=== PATIENT | male | born 1945 | race Caucasian/White ===

== ENCOUNTER → 2024-07-25 | Outpatient (CLI) | payer MEDICARE, BC ==
[2024-07-25 17:16] LABS: Partial Thromboplastin Time 25.7 sec (22.0-30.0); Prothrombin Time 11.3 sec (10.0-12.5)
[2024-07-26 02:13] LABS: Basophils # (A) 0.02 X 10*3/uL (0.00-0.10); Basophils % (A) 0.5 %; Eosinophils # (A) 0.08 X 10*3/uL (0.04-0.35); Eosinophils % (A) 1.9 %; HCT 29.1 % (39.6-50.0); HGB 9.2 g/dL (13.0-17.0); Lymphocytes # (A) 0.77 X 10*3/uL (0.90-5.00); Lymphocytes % (A) 18.2 %; MCH 27.8 pg (27.0-32.0); MCHC 31.6 g/dL (32.0-37.0); MCV 87.9 FL (80.0-97.0); Mean Platelet Volume 11.4 FL (9.5-12.2); Monocytes # (A) 0.38 X 10*3/uL (0.20-1.00); NRBC Per 100 WBC 0 X 10*3/uL (0.00-0.01); Neutrophils # (A) 2.97 X 10*3/uL (1.80-7.70); Neutrophils % (A) 70.2 %; Platelet Count 205 X 10*3/uL (140-440); RBC 3.31 X 10*6/uL (4.40-5.60); RDW 14.4 % (11.5-14.5); WBC 4.23 X 10*3/uL (4.50-10.00)
[2024-07-26 02:40] LABS: BUN/Creat Ratio 21.88 Ratio (12.00-20.00); Blood Urea Nitrogen 17.5 mg/dL (9.0-27.0); Calcium 8.8 mg/dL (8.7-10.3); Carbon Dioxide 25.2 mmol/L (21.6-31.8); Chloride 108 mmol/L (96-109); Glucose 94 mg/dL (70-110); Potassium 3.9 mmol/L (3.5-5.5); Sodium 144 mmol/L (135-145)
[2024-07-26 03:51] LABS: Appearance,Urine Clear (Clear); Bilirubin,Urine Negative (Negative); Blood,Urine Negative (Negative); Color,Urine Yellow (Yellow); Ketones,Urine Negative (Negative); Nitrite,Urine Negative (Negative); PH, Urine 5.5; Specific Gravity,Urine 1.016 (1.001-1.030); Urobilinogen,Urine 0.2 E.U./DL
== END | disposition home or self-care (01) ==
LOC: LABWHC1 15:43
PROVIDERS: ATTEND Orthopaedic Surgery Orthopaedic Surgery of the Spine
DX: Z01.812 Encounter for preprocedural laboratory examination (principal); Z22.322 Carrier or suspected carrier of Methicillin resistant Staphylococcus aureus; S32.029A Unspecified fracture of second lumbar vertebra, initial encounter for closed fracture
CPT/HCPCS: 36415; 80048; 81003; 85025; 85610; 85730; 86850; 86900; 86901; 87070

== ENCOUNTER → 2024-07-27 | Day surgery (SDC) | payer MEDICARE, BC ==
[~2024-07-27] MED LIST: ACETAMINOPHEN TAB 500 MG TAB PO SCH; ALBUTEROL NEBULIZED 2.5 MG/3 ML INHALATION PRN; AMYLASE PO SCH; BENZOCAINE/MENTHOL LOZENG 1 EACH LOZENGE MUCOUS MEM PRN; DEXAMETHASONE SOD PHOSPHATE 4 MG/ML 1 ML VIAL IV ONE; ESCITALOPRAM 20 MG TAB PO SCH; ETOMIDATE 2 MG/ML 10 ML VIAL ONE; HYDROcodone/APAP 5-325MG 1 EACH TAB PO PRN; HYDROmorphone 0.5 MG/0.5 ML SYRINGE IVP PRN; LIDOCAINE 1% INJ 10MG/ML (20 ML MDV) ONE; LIPASE PO SCH; NON FORMULARY DRUG (Fluticasone/Vilanterol [Breo Ellipta 200-25 Mcg Inhaler] 1 EACH Blst.W INHALATION SCH; ONDANSETRON 4 MG/2 ML VIAL IVP PRN; PANTOPRAZOLE 40 MG TABLET PO SCH; PROTEASE PO SCH; SODIUM CHLORIDE 0.9% 1,000 ML IV SCH; SUCCINYLCHOLINE CHLORIDE 200 MG/10 ML VIAL IV ONE; [UNRECOGNIZED DRUG - OTHER] PO SCH; ePHEDrine 50 MG/ML 1 ML VIAL ONE; fentaNYL (PF) 50 MCG/ML 2 ML AMP IV PRN; fentaNYL (PF) 50 MCG/ML 2 ML AMP ONE; traZODone HCL 50 MG TAB PO SCH
--- NOTE | 2024-07-27 06:23 | XR ---
EXAMINATION TYPE: XR chest 2V DATE OF EXAM: 07/27/2024 CLINICAL INDICATION: Male, 78 years old with history of Z01.818, presurgical study. TECHNIQUE: Frontal and lateral views of the chest are obtained. COMPARISON: None FINDINGS: Underlying emphysematous changes are present. Mild right apical scarring. There is no focal air space opacity, pleural effusion, or pneumothorax seen. The cardiac silhouette size is within no rmal limits. Atherosclerotic thoracic aorta. Scoliotic curvature is seen. IMPRESSION: Chronic changes without acute cardiopulmonary process. [facility], , 07/27/2024 6:20 AM
[2024-07-27] MEDS: IV FLUID CONTINUATION 1,000 ML IV ONE (06:56)
[2024-07-27] MEDS: LACTATED RINGERS 1,000 ML IV SCH (07:13)
[2024-07-27] MEDS: ONDANSETRON 4 MG/2 ML VIAL IVP ONE (07:13)
[2024-07-27] MEDS: ceFAZolin 2 GM in DEXTROSE 5% IN WATER 50 ML IVPB PRN (07:30)
[2024-07-27] MEDS: IOPAMIDOL M200 10 ML VIAL MISCELLANE ONE (08:02)
[2024-07-27] MEDS: BUPIVACAINE (PF) 0.5% 30 ML VIAL SQ ONE (08:31)
[2024-07-27 08:49] VITALS: TEMP 97.1
--- NOTE | 2024-07-27 08:57 | FL ---
EXAMINATION TYPE: FL guidance operating room, XR lumbar spine 2 or 3V DATE OF EXAM: 07/27/2024 FLUOROSCOPY L2 kyphoplasty fl time: 41sec DAP: [id number] Dr. West Serial imaging demonstrating anterior wedge deformity of L2 due to superior endplate fracture. There is sequential imaging which shows placement of a needle and injection of methyl methacrylate cement i nto the substance of the L2 vertebral body. Some extrusion of the cement superiorly. 6 images are submitted. [facility], Workstation: [id number], 07/27/2024 8:55 AM
--- NOTE | 2024-07-27 09:08 | P.OP ---
Date of Procedure: 07/27/24 Preoperative Diagnosis: L2 vertebral compression fracture, subacute Failed conservative treatment Traumatic fracture L2 status post fall Postoperative Diagnosis: Same Anesthesia: GETA Pathology: other (L2 vertebral body sent to pathology) Condition: stable Disposition: PACU Description of Procedure: BRIEF OPERATIVE NOTE Preoperative Diagnosis: L2 vertebral compression fracture, subacute Failed conservative treatment Traumatic fracture L2 status post fall Postoperative Diagnosis: Same Procedure: Kyphoplasty of L2 Vertebral body biopsy of L2 Use of biplanar fluoroscopic guidance Surgeon: Dr. West Cutter V Groove: Lorenzo SPENCER who is present throughout the entire the case persistence during positioning, dissection, exposure, visualization, and all crucial elements of the case as well as closure. Anesthesia: General anesthesia Estimated blood loss: Less than 10 mL Specimen: Vertebral body biopsy of L2 sent to pathology in formalin Complications: None apparent Components implanted: Bone cement approximately 4 and half cc Disposition: To recovery room in good stable condition. OPERATIVE INDICATIONS The patient has been having issues in their back ever since sustaining an injury. 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 We had seen him and started conservative treatment for him when he was found to have an L2 compression fracture. He is not having neurologic deficit. The patient has been through conservative treatment. They attempted conservative care with bracing however they're not having any benefit despite brace use. They continue to have significant pain and debility due to their fracture. Patient has a number of other medical issues including history of pancreatic cancer and and Whipple procedure and recent history of GI bleed mL and GI ulcerations. He has been cleared for the potential for surgical intervention for kyphoplasty with biopsy at L2. We discussed various treatment options including surgery, and the patient wishes to proceed with surgery We discussed the risk, patient's alternatives and benefits of surgery including but not limited to, risk of bleeding risk of infection, risk of need for further surgery, risk of decreased, loss of motion, loss of function, cement extravasation, nerve damage, paralysis, heart attack, blindness and . OPERATIVE SUMMARY After discussing all the risks, patient alternatives and benefits at length, the patient elected to proceed with surgical intervention, signed informed consent, and presented for their procedure. The patient was seen and examined in the preoperative holding area and the surgical site was marked. The patient was given antibiotics and brought to the operating room. The patient was sedated and intubated by anesthesia in standard fashion. The patient was positioned on to the operating room table in a prone position on the appropriate well-padded and well molded bilateral chest rolls. We were careful to pad any bony prominences and pressure points. We were careful to maintain the patient's cervical spine and good neutral alignment and position throughout. We used 2 C-arm machines to establish biplanar fluoroscopic guidance in AP and lateral positions. We were able to localize the fractures appropriately. The patient was prepped and draped in a normal standard fashion. An appropriate timeout and keystone protocol performed. We were able to proceed with the surgery. The local wound area was infiltrated with local anesthetic. An incision was made over the lateral aspect of the pedicle over the appropriate levels with a small 2 mm stab incision on the right. Intraoperative fluoroscopy was taken which showed a marker at the appropriate level. With the appropriate level positively confirmed at L2, I was able to position a sharp trocar over the lateral aspect of the pedicle. As able to advance the trocar into the pedicle and into the posterior aspect of vertebral body being careful to avoid penetration cephalad caudad or medially. The trocar was placed appropriately into the posterior aspect of vertebral body at the appropriate levels. This was confirmed with C-arm guidance. With the trocar intact I was then able to take a bone biopsy with a biopsy punch. The biopsy specimen was passed off to be sent to pathology in formalin. I was then able to place the kyphoplasty balloon within the vertebral body. The position was checked on C-arm. I was able to inflate the balloon under low pressure and visualization with C-arm. The balloon was well enclosed within the vertebral body. The cement was prepared. With the cement at appropriate working condition the balloons were deflated and removed. I was able to place bony cement with trocar with the cement delivery device under low pressure. It had good fill within the vertebral body. There is no evidence of any extravasation of the cement posteriorly toward the canal. The cement was well contained at the appropriate levels. The cement was allowed to cure appropriately. The trochars removed and final images were taken on C-arm. This showed the cement at the appropriate levels of L2. We were able to proceed with closure. The wound was cleaned and dried and dressed with the appropriate dressing. The drapes were broken down. The patient was gently rolled back onto their hospital bed being careful to maintain their cervical spine and good neutral alignment and position. They were woken up by anesthesia, extubated, and brought to the recovery room in good stable condition. The patient will be admitted to the hospital for observation and for appropriate postoperative care, medical management and monitoring. We will continue to follow them closely about the postoperative course.
[2024-07-27 09:57] VITALS: BP 143/71; PULSE 49; RESP 16
== END | disposition home or self-care (01) ==
LOC: OR 05:44
PROVIDERS: ATTEND Orthopaedic Surgery Orthopaedic Surgery of the Spine
DX: S32.020A Wedge compression fracture of second lumbar vertebra, initial encounter for closed fracture (principal); M47.816 Spondylosis without myelopathy or radiculopathy, lumbar region; M19.90 Unspecified osteoarthritis, unspecified site; J44.9 Chronic obstructive pulmonary disease, unspecified; K21.9 Gastro-esophageal reflux disease without esophagitis; W19.XXXA Unspecified fall, initial encounter; Z87.891 Personal history of nicotine dependence; Z85.07 Personal history of malignant neoplasm of pancreas; Z90.49 Acquired absence of other specified parts of digestive tract; Z79.51 Long term (current) use of inhaled steroids; Z79.899 Other long term (current) drug therapy
CPT/HCPCS: 22514; 88307; 88311; 72100; 71046; C1713; J0330; J0690; J2405; J2003; J3010; Q9966; J0665

== ENCOUNTER 2024-10-08 20:08 | Inpatient (IN) | payer MEDICARE, BC ==
[2024-10-08] MEDS ORDERED: OFIRMEV PER PHARMACY MISCELLANE PRN (20:41)
--- NOTE | 2024-10-08 20:53 | ED ---
General Adult HPI - General Chief complaint: Fall Stated complaint: fall Time Seen by Provider: 10/08/24 20:13 Source: patient Mode of arrival: EMS Limitations: no limitations - History of Present Illness Initial comments: Patient is a 79 y/o male PMH COPD on 2L O2 NC presenting today for right hip pain sustained after a ground level fall. Pt was reportedly at home alone- typically ambulates with a walker- when he went to the refrigerator to get a Popsicle and fell back and hit his head. He did not lose consciousness. His arrived home shortly after (states the popsicle was still frozen so pt was not on ground for long) and found pt on the floor, awake, alert, at baseline with abrasion to right occiput and complaining of right hip pain. Pt is not on blood thinners. Unable to ambulate afterwards 2/2 right hip pain. Pt's is unsure if pt fell 2/2 weakness or dehydration or from debility. Pt does not remember what caused him to fall. Currently denies any pain aside from pain in right hip, denies headache, dizziness, vision changes, numbness, weakness, chest pain, shortness of breath, abdominal pain, nausea, vomiting, diarrhea, melena, hematochezia, fevers or chills. Recently treated for a UTI. Had spine surgery with Dr. West earlier this year. - Related Data Home Medications Medication Instructions Recorded Confirmed Albuterol Inhaler [Ventolin Hfa 2 puff INHALATION RT-QID PRN 07/21/24 10/09/24 Inhaler] Escitalopram [Lexapro] 20 mg PO HS 07/21/24 10/09/24 Fluticasone/Vilanterol [Breo 1 puff INHALATION RT-DAILY 07/21/24 10/09/24 Ellipta 200-25 Mcg Inhaler] Lipase/Protease/Amylase [Patricia Leblanc 1 cap PO TID-W/MEALS 07/21/24 10/09/24 3,000 Units Capsule] Tamsulosin [Flomax] 0.4 mg PO DIRECTED 10/09/24 10/09/24 Vonoprazan Fumarate [Voquezna] 20 mg PO DAILY 10/09/24 10/09/24 buPROPion XL [Wellbutrin XL] 150 mg PO DAILY 07/13/25 07/13/25 traZODone HCL [Desyrel] 100 mg PO HS 10/09/24 10/09/24 Allergies Allergy/AdvReac Type Severity Reaction Status Date / Time No Known Allergies Allergy Verified 10/08/24 20:27 Review of Systems ROS Statement: Those systems with pertinent positive or pertinent negative responses have been documented in the HPI. ROS Other: All systems not noted in ROS Statement are negative. Past Medical History Past Medical History: Cancer, COPD, GERD/Reflux Additional Past Medical History / Comment(s): pancreatic cancer, sepsis 2020, blood clot in arm and possibly in leg after Whipple History of Any Multi-Drug Resistant Organisms: None Reported Past Surgical History: Tonsillectomy Additional Past Surgical History / Comment(s): Whipple procedure 2009, ulcer repair Past Anesthesia/Blood Transfusion Reactions: No Reported Reaction Past Psychological History: No Psychological Hx Reported Smoking Status: Former smoker General Exam - General Exam Comments Initial Comments: PE: CONSTITUTIONAL: No apparent distress, chronically ill-appearing, nontoxic SKIN: Warm, dry, no jaundice, hives or petechiae, small abrasion to the right occiput EYES: Pupils are equally round, extraocular movements intact without nystagmus, clear conjunctiva, non-icteric sclera HENT: Normocephalic, atraumatic, moist mucus membranes, oropharynx clear without exudates NECK: , Full range of motion, normal appearance, no midline cervical neck tenderness or step-offs. The patient denies any numbess, tingling, or weakness of the extremities when moving neck through full ROM. The patient is able to range their neck completely without midline cervical pain, numbness, tingling or weakness. PULMONARY: Clear to auscultation without wheezes, rhonchi, or rales, normal exc ursion, no accessory muscle use and no stridor CARDIOVASCULAR: Regular rate, rhythm, normal S1 and S2. No appreciated murmurs, rubs or gallops. Strong radial pulses with intact distal perfusion. 2+ dorsalis pedis pulse palpated in the right lower extremity no lower extremity edema GASTROINTESTINAL: Soft, active bowel sounds throughout, non-tender, non- distended, no palpable masses, no rebound or guarding. No hepatosplenomegaly GENITOURINARY: MUSCULOSKELETAL: Right lower extremity appears shortened and externally rotated, no tenderness palpation of the distal right lower extremity up to thigh, tenderness palpation with the lateral right hip, patient is able to flex and extend at the right ankle, right knee through full range of motion, difficulty flexing the right hip secondary to pain, extremity is neurovascularly intact, no visualized abrasions or lacerations, remaining extremities have no gross deformity, no edema, redness, or swelling. No calf swelling NEUROLOGIC:_a/o x 3, GCS 15, normal mentation and speech. Moves all extremities x 4 without motor or sensory deficit with exception as noted above PSYCHIATRIC:_normal mood and affect, thought process is overall clear and linear however patient is a poor historian concerning his recent fall Limitations: no limitations Course Vital Signs 10/08/24 10/08/24 10/08/24 20:24 21:30 22:30 Temperature 98.2 F Pulse Rate 58 L 57 L 56 L Respiratory 18 18 18 Rate Blood Pressure 137/72 148/76 131/83 O2 Sat by Pulse 100 98 97 Oximetry EKG Findings - EKG Comments: EKG Findings:: Sinus bradycardia, rate 56 bpm intervals and acceptable limits, no significant ST elevations or depressions, no arrhythmia Medical Decision Making - Medical Decision Making Was pt. sent in by a medical professional or institution (, PA, SECURITY SCREENER, urgent care, hospital, or snf...) When possible be specific @ -No Did you speak to anyone other than the patient for history (EMS, parent, family, police, friend...)? What history was obtained from this source @ -[Spoke with patient's who states that she arrived home to find patient on the ground, suspects patient was not on the ground for more than 5 minutes, states patient is not on blood thinners Did you review nursing and triage notes (agree or disagree)? Why? @ -I reviewed nursing and triage notes Were old charts reviewed (outside hosp., previous admission, EMS record, old EKG, old radiological studies, urgent care reports/EKG's, snf records)? Report findings @ -Medical records reviewed Differential Diagnosis (chest pain, altered mental status, abdominal pain women, abdominal pain men, vaginal bleeding, weakness, fever, dyspnea, syncope, headache, dizziness, GI bleed, back pain, seizure, CVA, palpatations, mental health, musculoskeletal)? @Differential Musculoskeletal Muscular strain, contusion, ligament sprain, fracture, arthritis, septic arthritis, bursitis, cellulitis, muscle spasm, nerve compression, DVT, arterial occlusion, herpes zoster, electrolyte abnormality, tumor.... This is not meant to be in all inclusive list EKG interpreted by me (3pts min.). @ -As above X-rays interpreted by me (1pt min.). @ -Reviewed x-rays, significant for nondisplaced and impacted fracture of right hip, rad. rec's CT CT interpreted by me (1pt min.). Personally reviewed CT hip, appears to show impacted minimally displaced right proximal femur subcapital fracture agree with radiologist interpretation U/S interpreted by me (1pt. min.). @ -None done What testing was considered but not performed or refused? (CT, X-rays, U/S, labs)? Why? @ -None What meds were considered but not given or refused? Why? @ -None Did you discuss the management of the patient with other professionals (professionals i.e. , PA, SECURITY SCREENER, lab, RT, psych nurse, social insurance analyst, bakery supervisor, teacher, public records officer, pillowcase turner)? Give summary @Yes, Case was discussed with Dr. Walters, orthopedic surgery, who kindly accepted patient for admission, patient to be made n.p.o. at midnight in anticipation for potential surgery in the morning or Thursday, requests sound physician group be consulted for medical management Was smoking cessation discussed for >3mins.? @ -No Was critical care preformed (if so, how long)? @ -No Were there social determinants of health that impacted care today? How? (Homelessness, low income, unemployed, alcoholism, drug addiction, transportation, low edu. Level, literacy, decrease access to med. care, correction, rehab)? @ -No Was there de-escalation of care discussed even if they declined (Discuss DNR or withdrawal of care, Hospice)? @ -No What co-morbidities impacted this encounter? (DM, HTN, Smoking, COPD, CAD, Cancer, CVA, ARF, Chemo, Hep., AIDS, mental health diagnosis, sleep apnea, morbid obesity)? @ -None Was patient admitted / discharged? Hospital course, mention meds given and route, prescriptions, significant lab abnormalities, going to OR and other pertinent info. @[id number]-old gentleman presenting today for right hip pain after a ground-level fall at home today. On my assessment patient is chronic ill- appearing though nontoxic, he is on his home 2 L oxygen nasal cannula. Exam is significant for tenderness palpation of the right lateral hip, right lower extremity appears slightly shortened and externally rotated, is neurovascularly intact. Discussed with patient and plan for plain films of affected extremity, pain medications. Additionally will obtain labs, EKG and chest x-ray given patient is unsure of the cause of his fall whether it be secondary to losing his balance, syncopal episode or dizziness. CT brain and C-spine ordered due to patient's head injury and age. CT brain/C-spine was reviewed, person ally I see no evidence of hemorrhage, skull fracture or C-spine fracture. Read by radiologist as no acute process. Plain films are significant for right hip fracture, recommended CT to further evaluate which was also significant for impacted subcapital femur fracture. Updated patient and to findings and plan for admission to orthopedics. All questions were answered and patient was admitted to Dr. Walters in stable condition. Undiagnosed new problem with uncertain prognosis? @ -No Drug Therapy requiring intensive monitoring for toxicity (Heparin, Nitro, Insulin, Cardizem)? @ -No Were any procedures done? @ -No Diagnosis/symptom? @Fall, impacted minimally displaced right hip fracture Acute, or Chronic, or Acute on Chronic? @Acute Uncomplicated (without systemic symptoms) or Complicated (systemic symptoms)? @Complicated Side effects of treatment? @ -No Exacerbation, Progression, or Severe Exacerbation? @ -No Poses a threat to life or bodily function? How? (Chest pain, [place], [place], pneumonia, PE, COPD, DKA, ARF, appy, cholecystitis, CVA, Diverticulitis, Homicidal, Suicidal, threat to staff... and all critical care pts) Yes, poses threat to the function of patient's right lower extremity if left untreated - Lab Data Result diagrams: 10/08/24 20:50 10/08/24 20:50 Lab Results 10/08/24 10/08/24 10/08/24 Range/Units 20:50 20:50 20:50 WBC 6.80 (4.50-10.00) 10*3/uL RBC 3.60 L (4.40-5.60) 10*6/uL Hgb 9.7 L (13.0-17.0) g/dL Hct 30.7 L (39.6-50.0) % MCV 85.3 (80.0-97.0) fL MCH 26.9 L (27.0-32.0) pg MCHC 31.6 L (32.0-37.0) g/dL Plt Count 188 (140-440) 10*3/uL MPV 9.9 (9.5-12.2) fL Immature Gran % (Auto) 0.4 % Neutrophils % 84.0 % Lymphocytes % 9.4 % Monocytes % 6.2 % Eosinophils % 0.0 % Basophils % 0.0 % Immature Gran # 0.03 (0.00-0.04) 10*3/uL Neutrophils # 5.71 (1.80-7.70) 10*3/uL Lymphocytes # 0.64 L (0.90-5.00) 10*3/uL Monocytes # 0.42 (0.20-1.00) 10*3/uL Eosinophils # 0.00 L (0.04-0.35) 10*3/uL Basophils # 0.00 (0.00-0.10) 10*3/uL PT 11.1 (10.0-12.5) sec INR 1.0 (<1.2) APTT 25.7 (22.0-30.0) sec Sodium 137 (137-145) mmol/L Potassium 4.1 (3.5-5.1) mmol/L Chloride 103 (98-107) mmol/L Carbon Dioxide 28 (22-30) mmol/L Anion Gap 6 mmol/L BUN 23 H (9-20) mg/dL Creatinine 0.62 L (0.66-1.25) mg/dL Est GFR (CKD-EPI)AfAm >90 (>60 ml/min/1.73 sqM) Est GFR (CKD-EPI)NonAf >90 (>60 ml/min/1.73 sqM) Glucose 98 (74-99) mg/dL POC Glucose (mg/dL) (70-110) mg/dL POC Glu Security Manager ID Calcium 8.7 (8.4-10.2) mg/dL Magnesium (1.6-2.3) mg/dL Total Bilirubin 0.4 (0.2-1.3) mg/dL AST 36 (17-59) U/L ALT 29 (4-49) U/L Alkaline Phosphatase 87 (38-126) U/L Troponin I (0.000-0.034) ng/mL Total Protein 5.7 L (6.3-8.2) g/dL Albumin 3.1 L (3.5-5.0) g/dL 10/08/24 10/08/24 10/08/24 Range/Units 20:53 20:53 21:48 WBC (4.50-10.00) 10*3/uL RBC (4.40-5.60) 10*6/uL Hgb (13.0-17.0) g/dL Hct (39.6-50.0) % MCV (80.0-97.0) fL MCH (27.0-32.0) pg MCHC (32.0-37.0) g/dL Plt Count (140-440) 10*3/uL MPV (9.5-12.2) fL Immature Gran % (Auto) % Neutrophils % % Lymphocytes % % Monocytes % % Eosinophils % % Basophils % % Immature Gran # (0.00-0.04) 10*3/uL Neutrophils # (1.80-7.70) 10*3/uL Lymphocytes # (0.90-5.00) 10*3/uL Monocytes # (0.20-1.00) 10*3/uL Eosinophils # (0.04-0.35) 10*3/uL Basophils # (0.00-0.10) 10*3/uL PT (10.0-12.5) sec INR (<1.2) APTT (22.0-30.0) sec Sodium (137-145) mmol/L Potassium (3.5-5.1) mmol/L Chloride (98-107) mmol/L Carbon Dioxide (22-30) mmol/L Anion Gap mmol/L BUN (9-20) mg/dL Creatinine (0.66-1.25) mg/dL Est GFR (CKD-EPI)AfAm (>60 ml/min/1.73 sqM) Est GFR (CKD-EPI)NonAf (>60 ml/min/1.73 sqM) Glucose (74-99) mg/dL POC Glucose (mg/dL) 88 (70-110) mg/dL POC Glu Security Manager ID Burgess Walters Calcium (8.4-10.2) mg/dL Magnesium 1.7 (1.6-2.3) mg/dL Total Bilirubin (0.2-1.3) mg/dL AST (17-59) U/L ALT (4-49) U/L Alkaline Phosphatase (38-126) U/L Troponin I <0.012 (0.000-0.034) ng/mL Total Protein (6.3-8.2) g/dL Albumin (3.5-5.0) g/dL Disposition Clinical Impression: Fall, Subcapital fracture of right femur Disposition: ADMITTED IP TO THIS HOSP Condition: Stable
[2024-10-08] MEDS: SODIUM CHLORIDE 0.9% 500 ML 500 ML IV ONE (21:06)
[2024-10-08] MEDS: MORPHINE SULFATE 4 MG/ML SYRINGE IV STA (21:06)
[2024-10-08] MEDS: ONDANSETRON 4 MG/2 ML VIAL IVP STA ×2 (21:07→22:13)
[2024-10-08 21:08] LABS: Basophils # (A) 0.00 10*3/uL (0.00-0.10); Basophils % (A) 0.0 %; Eosinophils # (A) 0.00 10*3/uL (0.04-0.35); Eosinophils % (A) 0.0 %; HCT 30.7 % (39.6-50.0); HGB 9.7 g/dL (13.0-17.0); Lymphocytes # (A) 0.64 10*3/uL (0.90-5.00); Lymphocytes % (A) 9.4 %; MCH 26.9 pg (27.0-32.0); MCHC 31.6 g/dL (32.0-37.0); MCV 85.3 fL (80.0-97.0); Monocytes # (A) 0.42 10*3/uL (0.20-1.00); Monocytes % (A) 6.2 %; Neutrophils # (A) 5.71 10*3/uL (1.80-7.70); Neutrophils % (A) 84.0 %; Platelet Count 188 10*3/uL (140-440); RBC 3.60 10*6/uL (4.40-5.60); RDW 21.7 % (11.5-14.5); WBC 6.80 10*3/uL (4.50-10.00)
[2024-10-08 21:21] LABS: INR 1.0 (<1.2); Partial Thromboplastin Time 25.7 sec (22.0-30.0); Prothrombin Time 11.1 sec (10.0-12.5)
[2024-10-08 21:31] LABS: ALT 29 U/L (4-49); AST 36 U/L (17-59); African American GFR (CKD) >90 (>60 ml/min/1.73 sqM); Albumin 3.1 g/dL (3.5-5.0); Alkaline Phosphatase 87 U/L (38-126); Anion Gap 6 mmol/L; Blood Urea Nitrogen 23 mg/dL (9-20); Calcium 8.7 mg/dL (8.4-10.2); Carbon Dioxide 28 mmol/L (22-30); Chloride 103 mmol/L (98-107); Glucose 98 mg/dL (74-99); Non-African American GFR(CKD) >90 (>60 ml/min/1.73 sqM); Potassium 4.1 mmol/L (3.5-5.1); Sodium 137 mmol/L (137-145); Total Protein 5.7 g/dL (6.3-8.2)
--- NOTE | 2024-10-08 21:41 | CT ---
EXAMINATION TYPE: CT brain cspine wo con CT DLP: 1392 mGycm, Automated exposure control for dose reduction was used. DATE OF EXAM: 10/08/2024 9:33 PM COMPARISON: None.. CLINICAL INDICATION:Male, 79 years old with history of Trauma; FALL, pain TECHNIQUE: Brain: Multiple axial CT images of the brain were obtained without IV contrast. Cspine: Axial CT images from the skull base to the inferior aspect of T2 we obtained without intraven ous contrast. Coronal and sagittal reformatted images were also reviewed. FINDINGS: Brain: Extra-axial spaces: No abnormal extra-axial fluid collections. Ventricular system: Dilatation in proportion to cerebral atrophy. Cerebral parenchyma: Mild cerebral atrophy. No acute intraparenchymal hemorrhage or mass effect. The gay-white junction is well differentiated. Confluent hypoattenuating areas are seen within the filiberto ventricular and subcortical white matter. Cerebellum: Unremarkable. Mass effect: No evidence of midline shift. Intracranial vasculature: Atherosclerotic calcifications of the intracranial vessels. Soft tissues: Normal. Calvarium/osseous structures: No depressed skull fracture. Paranasal sinuses and mastoid air cells: Clear. Visualized orbits: Orbital contents are intact. Cervical spine: Fracture: None. Osseous structures: Unremarkable Vertebral alignment: Degenerative grade 1 anterolisthesis of C4 on C5. Spinal canal/Neural Foramina: No evidence of significant spinal canal narrowing. No evidence for sign ificant neural foraminal stenosis. Neck soft tissues: Prevertebral soft tissues are within normal limits. Other: The airway is patent with a tracheal synechiae. Advanced centrilobular emphysematous changes. Advanced bilateral carotid bifurcation calcifications. IMPRESSION: 1. No acute intracranial process. 2. Advanced nonspecific white matter changes, likely secondary to chronic small vessel ischemic disea se. 3. No evidence of cervical spine fracture. [facility], , 10/08/2024 9:39 PM
--- NOTE | 2024-10-08 21:44 | XR ---
EXAMINATION TYPE: XR chest 1V DATE OF EXAM: 10/08/2024 9:39 PM COMPARISON: Chest radiographs from 07/27/2024 TECHNIQUE: XR chest 1V Frontal and lateral views of the chest. CLINICAL INDICATION:Male, 79 years old with history of weakness, fall; pain FINDINGS: Lungs/Pleura: There is no evidence of pleural effusion, focal consolidation, or pneumothorax. Hyperi nflation. Pulmonary vascularity: Unremarkable. Heart/mediastinum: Cardiomediastinal silhouette is unremarkable. Atherosclerotic calcifications are seen in the aorta. Musculoskeletal: No acute osseous pathology. IMPRESSION: 1. No acute cardiopulmonary disease process. 2. COPD changes. [facility], , 10/08/2024 9:42 PM
[2024-10-08] MEDS: ACETAMINOPHEN IV (For NPO) 1,000 MG in EMPTY BAG 1 BAG IVPB STA (21:47)
[2024-10-08 21:49] LABS: Glucose,Whole Blood 88 mg/dL (70-110)
--- NOTE | 2024-10-08 21:49 | XR ---
EXAMINATION TYPE: XR Hip Bilateral and AP pelvis, XR femur RT DATE OF EXAM: 10/08/2024 9:41 PM INDICATION: Patient age:Male; 79 years old; Reason for study: fall right hip pain; PHH. pain COMPARISON: Lumbar spine radiograph 07/27/2024 TECHNIQUE: Both hips were examined in the frontal and lateral projections and a AP pelvis. The right femur was examined in frontal and lateral projections. FINDINGS: Diffuse bone demineralization. The SI joints are intact. The left hip appears intact. Subtl e cortical irregularity involving the right femoral head. No dislocation. No soft tissue swelling. Va scular sclerosis. IMPRESSION: Subtle cortical irregularity involving the right femoral head concerning for possible acute subcapita l fracture. Recommend further evaluation with CT. [facility], , 10/08/2024 9:47 PM
[2024-10-08] MEDS: MORPHINE SULFATE 4 MG/ML SYRINGE IVP STA (22:11)
--- NOTE | 2024-10-08 22:30 | CT ---
EXAMINATION TYPE: CT hip RT wo con CT DLP: 242.3 mGycm, Automated exposure control for dose reduction was used. DATE OF EXAM: 10/08/2024 10:18 PM COMPARISON: Bilateral hip and right femur radiographs 10/08/2024 CLINICAL INDICATION:Male, 79 years old with history of poss hip fracture on XR, rec'd CT; PHH, FALL, RIGHT HIP PAIN TECHNIQUE: Axial images were obtained of the right hip without the use of IV contrast. Additional co khushboo and sagittal reformatted images and soft tissue and bone window were obtained for review. 3-D r econstruction was created on a separate workstation. FINDINGS: Diffuse bone demineralization. Acute impacted minimally displaced right proximal femur subcapital fra cture. No dislocation. Small joint effusion. No soft tissue edema. Atherosclerotic calcification of t he vasculature. IMPRESSION: Acute impacted minimally displaced right proximal femur subcapital fracture. [facility], , 10/08/2024 10:28 PM
[2024-10-08] MEDS ORDERED: ONDANSETRON 4 MG/2 ML VIAL IVP PRN (22:33)
[2024-10-08] MEDS ORDERED: NALOXONE 0.4 MG/ML 1 ML VIAL IV PRN (22:33)
[2024-10-08] MEDS ORDERED: HYDROmorphone 1 MG/ML 1 ML SYRINGE IVP PRN (22:33)
[2024-10-08] MEDS: SODIUM CHLORIDE 0.9% 1,000 ML IV SCH (23:05)
[2024-10-09] MEDS: HYDROmorphone 0.5 MG/0.5 ML SYRINGE IVP PRN ×2 (01:00→20:48)
[2024-10-09 01:53] LABS: Amorphous Sediment,Urine Rare /hpf; Bilirubin,Urine Negative (Negative); Blood,Urine Small (Negative); Color,Urine Yellow; Glucose,Urine (UA) Negative (Negative); Hyaline Casts,Urine 8 /lpf (0-2); Ketones,Urine Negative (Negative); Leukocyte Esterase,Urine Negative (Negative); Mucus,Urine Occasional /hpf; Nitrite,Urine Negative (Negative); PH, Urine 5.5 (5.0-8.0); Protein,Urine Negative (Negative); RBC,Urine 27 /hpf (0-5); Specific Gravity,Urine 1.024 (1.001-1.035); Squamous Epithelial Cell,Urine <1 /hpf (0-4); Urobilinogen,Urine <2.0 mg/dL (<2.0); WBC,Urine 1 /hpf (0-5)
--- NOTE | 2024-10-09 07:11 | P.HPIM ---
History of Present Illness H&P Date: 10/09/24 Chief Complaint: "I fell down" 79 year old male with Dementia and COPD patient unable to provide meaningful history due to dementia, he defers my questions to his Patient fell down at home while going to the kitchen to get a popsicle. Patient reports not having the right socks on and hit the floor. Patient denies hitting head, passing out, or experiencing dizziness, lightheadedness, or heart racing before or after the fall. Patient sustained a right hip fracture and is currently not experiencing pain from the injury. Patient denies any cuts or wounds from the fall. Patient lives with who provides significant care support and manages patient's medical equipment and medications. 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 Patient can climb 5 steps to back door without difficulty. Patient limits outdoor walking due to concerns about falling rather than breathing difficulties. Patient does not do shopping. Patient reports manages all medications and patient is unsure of specific medications or dosages. PMHx COPD requiring home oxygen therapy and nighttime breathing machine (CPAP or BiPAP). Patient denies diabetes, heart attack, or stroke. Patient is uncertain about blood pressure medications. Patient uses indwelling urinary catheter at home. Review of systems All systems reviewed with pertinent positive negatives as per HPI on exam Constitutional: No acute distress, conversant Eyes: Anicteric sclerae, moist conjunctiva, Pupils equal round reactive to light ENMT: NC/AT Oropharynx clear, no erythema, or exudates Neck: Supple, no masses, or JVD No carotid bruits No thyromegaly Lungs: Clear to auscultation Clear to percussion Normal respiratory effort, no accessory muscle use Cardiovascular: Heart regular in rate and rhythm, No murmurs, gallops, or rubs No peripheral edema Abdominal: Soft Nontender, no guarding, rebound or rigidity Abdomen moving with respiration Extremities: No digital cyanosis No clubbing Pedal pulses intact and symmetrical Radial pulses intact and symmetrical No calf tenderness Psychiatric: Alert and oriented to person, place Neuro Muscles Strength 5/5 in all 4 extremities with limitations over the right LE due to pain Sensation to light touch grossly present throughout Cranial nerves II-XII grossly intact Past Medical History Past Medical History: Cancer, COPD, GERD/Reflux Additional Past Medical History / Comment(s): pancreatic cancer, sepsis 2020, blood clot in arm and possibly in leg after Whipple History of Any Multi-Drug Resistant Organisms: None Reported Past Surgical History: Tonsillectomy Additional Past Surgical History / Comment(s): Whipple procedure 2009, ulcer repair Past Anesthesia/Blood Transfusion Reactions: No Reported Reaction Past Psychological History: No Psychological Hx Reported Smoking Status: Former smoker Medications and Allergies Home Medications Medication Instructions Recorded Confirmed Type Albuterol Inhaler [Ventolin Hfa 1 - 2 inh INHALATION Q6H PRN 07/21/24 07/27/24 History Inhaler] Escitalopram [Lexapro] 20 mg PO HS 07/21/24 07/27/24 History Fluticasone/Vilanterol [Breo 1 inh INHALATION DAILY 07/21/24 07/27/24 History Ellipta 200-25 Mcg Inhaler] Lipase/Protease/Amylase [Creon Dr 3,000 units PO TID 07/21/24 07/27/24 History 3,000 Units Capsule] Pantoprazole [Protonix] 40 mg PO BID 07/21/24 07/27/24 History traZODone HCL [Desyrel] 50 mg PO HS 07/21/24 07/27/24 History HYDROcodone/APAP 5-325MG [[place] 1 tab PO Q8HR PRN 3 Days #9 tab 07/27/24 Rx 5-325] Allergies Allergy/AdvReac Type Severity Reaction Status Date / Time No Known Allergies Allergy Verified 10/08/24 20:27 Physical Exam Vitals: Vital Signs Temp Pulse Pulse Resp BP BP Pulse Ox 10/09/24 01:32 18 10/09/24 00:41 97.9 F 58 L 17 150/71 93 L 10/09/24 00:30 98.2 F 61 18 146/72 98 10/08/24 22:30 56 L 18 131/83 97 10/08/24 21:30 57 L 18 148/76 98 10/08/24 20:24 98.2 F 58 L 18 137/72 100 Intake and Output 10/08/24 10/08/24 10/09/24 14:59 22:59 06:59 Output Total 300 Balance -300 Output: Urine 300 Other: Voiding Method Indwelling Catheter Weight 50.349 kg 50.349 kg Results CBC & Chem 7: 10/08/24 20:50 10/08/24 20:50 Labs: Abnormal Lab Results - Last 24 Hours (Table) 10/08/24 10/08/24 10/09/24 Range/Units 20:50 20:50 01:14 RBC 3.60 L (4.40-5.60) 10*6/uL Hgb 9.7 L (13.0-17.0) g/dL Hct 30.7 L (39.6-50.0) % MCH 26.9 L (27.0-32.0) pg MCHC 31.6 L (32.0-37.0) g/dL Lymphocytes # 0.64 L (0.90-5.00) 10*3/uL Eosinophils # 0.00 L (0.04-0.35) 10*3/uL BUN 23 H (9-20) mg/dL Creatinine 0.62 L (0.66-1.25) mg/dL Total Protein 5.7 L (6.3-8.2) g/dL Albumin 3.1 L (3.5-5.0) g/dL Urine Blood Small H (Negative) Urine RBC 27 H (0-5) /hpf Amorphous Sediment Rare H (None) /hpf Hyaline Casts 8 H (0-2) /lpf Urine Mucus Occasional H (None) /hpf Thrombosis Risk Factor Assmnt - Choose All That Apply Any of the Below Risk Factors Present?: Yes Each Factor Represents 1 point: Abnormal pulmonary function (COPD), Medical pt on bed rest Other Risk Factors: Yes Each Risk Factor Represents 3 Points: Age 75 years or older, History of DVT/PE Each Risk Factor Represents 5 Points: Hip, pelvis, or leg fracture (< 1 month) Thrombosis Risk Factor Assessment Total Risk Factor Score: 13 Thrombosis Risk Factor Assessment Level: High Risk Assessment and Plan Assessment: Patient presents with right hip fracture following mechanical fall at home. P bradenient is being evaluated for surgical candidacy and pre-operative clearance. Patient has underlying COPD requiring oxygen therapy and nighttime breathing support. unable to fully assess patient at this time , limitation due to his dementia, is supposedly coming in at 7 am to provide further insight about his medical history and medications from his unverified medication list , he seems to have COPD , with home oxygen without any other major medical conditions COPD compensated continue home inhalers continue supplemental oxygen duobeb PRN DVT PPX heparin sc 5000 units tid blood work reviewed WBC 6.8 unremarkalb e renal function unremarkable Na 137 K 4.1 BUN 23 Cr 0.6 hand off to day team provider, for preop clearance once he verifies medical history with patient
[2024-10-09] MEDS ORDERED: IPRATROPIUM-ALBUTEROL 3 ML NEB INHALATION PRN (07:22)
[2024-10-09] MEDS ORDERED: HEPARIN SODIUM,PORCINE 5,000 UNIT/ML 1 ML VIAL SQ SCH (08:00)
--- NOTE | 2024-10-09 08:10 | P.HPOR ---
History of Present Illness H&P Date: 10/09/24 The patient is a very pleasant 79-year-old male multiple medical problems including a history of pancreatic cancer status post Whipple procedure 15 years ago, COPD on home oxygen, recurrent bleeding ulcers in his gastrointestinal tract, and history of vertebral compression fracture requiring kyphoplasty who is presently admitted to me with a right hip fracture. According to the patient and family who is at bedside he was getting up yesterday when he slipped and fell injuring his right hip. The patient states he had immediate pain and was unable to ambulate. He was down for a short amount of time before his family found him. He was brought to the emergency room where x-rays and CT scan showed a displaced subcapital femoral neck fracture. At the time of my evaluation the prior hip pain. According to the son at baseline the patient is not very active and ambulates short distances with assistance and a walker. Past Medical History Past Medical History: Cancer, COPD, GERD/Reflux Additional Past Medical History / Comment(s): pancreatic cancer, sepsis 2020, blood clot in arm and possibly in leg after Whipple History of Any Multi-Drug Resistant Organisms: None Reported Past Surgical History: Tonsillectomy Additional Past Surgical History / Comment(s): Whipple procedure 2009, ulcer repair Past Anesthesia/Blood Transfusion Reactions: No Reported Reaction Past Psychological History: No Psychological Hx Reported Smoking Status: Former smoker Medications and Allergies Home Medications Medication Instructions Recorded Confirmed Type Albuterol Inhaler [Ventolin Hfa 1 - 2 inh INHALATION Q6H PRN 07/21/24 07/27/24 History Inhaler] Escitalopram [Lexapro] 20 mg PO HS 07/21/24 07/27/24 History Fluticasone/Vilanterol [Breo 1 inh INHALATION DAILY 07/21/24 07/27/24 History Ellipta 200-25 Mcg Inhaler] Lipase/Protease/Amylase [Creon Dr 3,000 units PO TID 07/21/24 07/27/24 History 3,000 Units Capsule] Pantoprazole [Protonix] 40 mg PO BID 07/21/24 07/27/24 History traZODone HCL [Desyrel] 50 mg PO HS 07/21/24 07/27/24 History HYDROcodone/APAP 5-325MG [[place] 1 tab PO Q8HR PRN 3 Days #9 tab 07/27/24 Rx 5-765] Allergies Allergy/AdvReac Type Severity Reaction Status Date / Time No Known Allergies Allergy Verified 10/08/24 20:27 Physical Examination Patient is resting comfortably in bed. He is alert and able to answer qu estions. On appearance the patient appears very thin and frail. His head is normocephalic and atraumatic. His chest demonstrates nonlabored breathing with symmetric chest expansion. His abdomen is soft and nontender. Both upper extremities show no obvious deformities and no tenderness to palpation. Exam of the left lower extremity shows no obvious deformity and no tenderness or pain with passive range of motion. A focused exam of the right lower extremity was conducted. Shortened and externally rotated. There are no skin lesions or scars over the anterior aspect of the hip. There is pain with any attempts at passive range of motion of the hip. There is no tenderness in the knee or ankle. Results X-rays and CT scan of the pelvis and hips show a displaced right subcapital femoral neck fracture. - Labs Labs: Abnormal Lab Results - Last 24 Hours (Table) 10/08/24 10/08/24 10/09/24 Range/Units 20:50 20:50 01:14 RBC 3.60 L (4.40-5.60) 10*6/uL Hgb 9.7 L (13.0-17.0) g/dL Hct 30.7 L (39.6-50.0) % MCH 26.9 L (27.0-32.0) pg MCHC 31.6 L (32.0-37.0) g/dL Lymphocytes # 0.64 L (0.90-5.00) 10*3/uL Eosinophils # 0.00 L (0.04-0.35) 10*3/uL BUN 23 H (9-20) mg/dL Creatinine 0.62 L (0.66-1.25) mg/dL Total Protein 5.7 L (6.3-8.2) g/dL Albumin 3.1 L (3.5-5.0) g/dL Urine Blood Small H (Negative) Urine RBC 27 H (0-5) /hpf Amorphous Sediment Rare H (None) /hpf Hyaline Casts 8 H (0-2) /lpf Urine Mucus Occasional H (None) /hpf H & H 07/12/25 Range/Units 20:50 Hgb 9.7 L (13.0-17.0) g/dL Hct 30.7 L (39.6-50.0) % Coagulation 10/08/24 Range/Units 20:50 INR 1.0 (<1.2) Result Diagrams: 10/08/24 20:50 10/08/24 20:50 Assessment and Plan Assessment: Displaced right subcapital femoral neck fracture Fragility fracture, vertebral compression fracture status post kyphoplasty History of pancreatic cancer status post Whipple procedure Bleeding ulcers, GI tract COPD on home oxygen Anemia on presentation BMI 15.1 Malnutrition Plan: I had a long discussion with the patient, his , and son at bedside. The patient has a displaced right hip fracture. My recommendation is to perform a direct anterior cemented hip hemiarthroplasty. The patient and his family understand due to his multiple medical problems and overall frail state of health he is at an increased risk of complication including failure to thrive an d . We all agree however that the benefits of surgery to allow early mobilization outweigh the surgical risks. Internal medicine has been consulted. We will plan for surgery later today if he is medically cleared. Please hold anticoagulation until after surgery. In the interim the patient is to be on strict bedrest. Time with Patient: Greater than 30
[2024-10-09] MEDS: PANTOPRAZOLE 40 MG/10 ML VIAL IV SCH (08:27)
[2024-10-09] MEDS ORDERED: ENOXAPARIN 30 MG/0.3 ML SYRINGE SQ SCH (09:00)
[2024-10-09] MEDS ORDERED: ePHEDrine 50 MG/ML 1 ML VIAL ONE (11:43)
[2024-10-09] MEDS ORDERED: PHENYLEPHRINE-0.9% NACL SYG 1,000 MCG/10 ML SYRINGE ONE (11:43)
[2024-10-09] MEDS ORDERED: TRANEXAMIC 1,000 MG/100ML-NACL PREMIX BAG ONE (11:43)
[2024-10-09] MEDS ORDERED: WATER FOR INJECTION, STERILE 10 ML VIAL IV ONE (11:43)
[2024-10-09] MEDS ORDERED: SUCCINYLCHOLINE CHLORIDE 200 MG/10 ML VIAL IV ONE (11:43)
[2024-10-09] MEDS ORDERED: PROPOFOL 10 MG/ML 20 ML VIAL IV ONE (11:43)
[2024-10-09] MEDS ORDERED: GLYCOPYRROLATE 0.2 MG/ML 2 ML VIAL ONE (11:43)
[2024-10-09] MEDS ORDERED: NEOSTIGMINE 1 MG/ML 10 ML VIAL ONE (11:43)
[2024-10-09] MEDS ORDERED: LIDOCAINE 1% INJ 10MG/ML (20 ML MDV) ONE (11:43)
[2024-10-09] MEDS ORDERED: ROCURONIUM 10 MG/ML (5 ML VIAL) IV ONE (11:43)
[2024-10-09] MEDS ORDERED: fentaNYL (PF) 50 MCG/ML 2 ML AMP ONE (11:43)
[2024-10-09] MEDS: LACTATED RINGERS 1,000 ML IV ONE ×2 (11:48→12:40)
[2024-10-09] MEDS: ROPIVACAINE/EPI/CLONIDINE/KET 50 ML SYRINGE MISCELLANE PRN (12:30)
[2024-10-09] MEDS: SODIUM CHLORIDE 0.9% 100 ML with ceFAZolin 1,000 MG IV ONE (12:31)
[2024-10-09] MEDS ORDERED: HYDROcodone/APAP 10-325MG 1 EACH TAB PO PRN (13:33)
[2024-10-09] MEDS ORDERED: NALOXONE 0.4 MG/ML 1 ML VIAL IV PRN (13:33)
[2024-10-09] MEDS ORDERED: MAGNESIUM HYDROXIDE 2,400 MG/30 ML CUP PO PRN (13:33)
[2024-10-09] MEDS ORDERED: HYDROmorphone 0.5 MG/0.5 ML SYRINGE IVP PRN ×2 (13:33)
--- NOTE | 2024-10-09 13:33 | P.OP ---
Date of Procedure: 10/09/24 Preoperative Diagnosis: 1. Displaced right subcapital femoral neck fracture 2. History of pancreatic cancer status post Whipple procedure 3. Cachexia, BMI 15.1 4. Preoperative anemia with hemoglobin less than 10 5. COPD 6. Recurrent gastrointestinal bleeds 7. Fragility fracture with recent kyphoplasty for compression fracture in the spine Postoperative Diagnosis: Same Procedure(s) Performed: 1. Right direct anterior hip hemiarthroplasty 2. Application of negative pressure incisional wound VAC, right hip, DME, incision less than 15 cm, less than 50 cm Implants: [place] Accolade C size #4 standard offset femoral stem, 52 mm outer diameter bipolar head, 28 mm inner diameter head with a +8 mm neck Anesthesia: GREGOR, regional Surgeon: Tyrell Walters Burner Tender #1: Lopez Valenzuela Estimated Blood Loss (ml): 200 IV fluids (ml): 800 Pathology: none sent Condition: stable Disposition: PACU Indications for Procedure: I met with the patient and their family to discuss treatment options. The patient has a displaced femoral neck fracture and based on their age, activity level, and medical comorbidities I recommended a hip hemiarthroplasty to facilitate early mobilization. My recommendation was to perform the hemiarthroplasty through a direct anterior approach to help lower the risk of dislocation and improve postoperative recovery and use cemented fixation of the femoral component to reduce the risk of fracture and postoperative thigh pain. We discussed the potential risks and complications of a hemiarthroplasty for displaced femoral neck fracture at length. Risks discussed include are certainly not limited to risks from anesthesia, superficial infection requiring local wound care and possibly surgical debridement, deep periprosthetic joint infection and the treatment for this, damage to local blood vessels or nerves particularly the lateral femoral cutaneous nerve, intraoperative fracture, postoperative periprosthetic fracture, leg length discrepancy, hip dislocation, aseptic loosening, groin pain, thigh pain, progression of arthritis requiring conversion to total hip arthroplasty, complications related to cementing the component, an inability to regain preinjury level of function, DVT, PE, acute coronary event, stroke, pneumonia, urinary tract infection, failure to thrive, and possibly . The patient and their family understand that while these are the most common complications other less common complications are possible. They provided their verbal and written consent to go forward with surgery. Operative Findings: There was a partially displaced subcapital femoral neck fracture and large hemarthrosis. The patient had exceedingly poor bone quality. Description of Procedure: The patient was identified in the preoperative holding area and the correct hip was marked with my initials. I reviewed the procedure and consent with the patient. All of their questions were answered. The patient was then brought back into the operating room by anesthesia. While on the [facility] anesthesia was administered by the anesthesia team. Preoperative antibiotics and tranexamic acid were also given. After the patient was under anesthesia I examined their ankles to determine their preoperative leg length discrepancy. The skin over the anterior aspect of the hip was shaved to remove hair over the site of planned incision. Both feet and ankles were padded with webril and boots for the [place] were applied. The patient was then carefully transferred onto the [place] table. A perineal post was immediately placed. The arms were placed on arm holders and were well-padded. Both boots were secured to the spars on the [place] table. The patient was positioned so that the pelvis was centered over the post. Nonsterile drapes were applied. A timeout was performed identifying the correct patient, operative extremity, and procedure. At this point fluoroscopy was brought in to take preoperative images of the pelvis and operative hip. A metallic bar was used to create a bi-ischial line for use as a reference to leg length adjustments during the procedure. Global offset was also measured on both the operative and nonoperative leg. Fluoroscopy was then brought out and a pre-scrub using a chlorhexidine scrub brush was performed. The operative limb was then prepped and draped in the standard sterile fashion. An anterior longitudinal incision was made lateral and distal to the ASIS. The skin and subcutaneous tissues were incised sharply. The underlying tensor fascia was identified and incised in its midportion. The fascia was dissected free from the underlying muscle and the muscle belly was retracted. A blunt tipped cobra retractor was placed over the superior neck under the muscle fibers of the gluteus minimus. The deep enveloping fascia of the tensor was incised. The anterior leash of vessels were then identified and cauterized. The fascia between the rectus and the capsule was then incised and the pre-capsular fat was excised. A second Cobra was placed inferior to the neck. The interval between the rectus and iliocapsularis and the hip capsule was developed and a retractor was placed carefully over the anterior rim of the acetabulum. A T-shaped anterior capsulotomy was performed. A hemarthrosis consistent with a femoral neck fracture was identified. The superior capsular leaflet was left in place in the inferior capsular flap was excised. The Cobra retractors were placed intracapsularly. A displaced femoral neck fracture was then identified. We then made a femoral neck osteotomy according to preoperative and intraoperative templating and confirmed the level of the osteotomy using fluoroscopic imaging. The femoral head was removed, passed off to the back table, and sized. The superior capsular flap was excised. On inspection of the acetabulum there were minimal degenerative changes with intact cartilage. Attention was then turned to the femur. The remnant dorsal lateral capsule was excised. The short external rotators were visible and protected. A bone hook was used to confirm appropriate translation of the trochanter away from the a cetabulum. The leg was then extended and adducted and the bone hook was used to elevate the femur for broaching. A box osteotome and blunt tipped canal sound was then utilized to gain access to the femoral canal. We then sequentially broached the femur in appropriate anteversion until torsional stability was achieved and the implant was felt to have reached the appropriate size to allow trialing. The neck cut was brought flush to the trial broach with a calcar planar. A trial neck and head were then placed onto the broach and the hip was atraumatically reduced under direct visualization. External rotation to 90 was performed to assess stability. Fluoroscopy was brought in. An AP and lateral fluoroscopic image of the proximal femur was obtained to assess position and fill of the trial broach. An AP of the pelvis was then obtained and matched to the preoperative image taken. A bi-ischial bar was then placed and measurements were taken to assess changes in length and offset. The hip was then carefully dislocated, the proximal femur was exposed, and the trial implants were removed. The proximal femur was then prepared for cementing. The canal was thoroughly irrigated with pulsatile lavage to remove blood and marrow contents. A cement restrictor was placed to a depth just distal to the tip of the final implant. Epinephrine-soaked gauze was then packed into the proximal femur. 2 bags of cement with antibiotics were then mixed using a centrifuge and placed into a cement gun. Anesthesia was notified that cementing was about to commence to make sure the patient was appropriately ventilated and hydrated. Once the cement had reached appropriate consistency, the cement gun was used to fill the canal in a retrograde fashion starting at the restrictor. Cement was then pressurized into the canal with a blue tipped machine driller. The stem was then carefully introduced into the cement taking care to guide the implant into appropriate version. The stem was held in position until the cement had fully set. All extra cement was removed while the cement was hardening. The trunnion was cleansed and the final head was tapped into place to engage the Epps taper. The acetabulum was irrigated and visualized to be free of debris. The hip was carefully reduced. Stability was checked clinically with external rotation to 90 and there was no evidence of instability. Final fluoroscopic images were taken. The wound was then thoroughly irrigated with Irrisept. 3 L of sterile saline was irrigated through the wound using pulsatile lavage. Local anesthetic cocktail was injected into the soft tissues around the surgical field. The wound was then closed in layers. An incisional wound VAC was placed over the surgical incision. The drapes were taken down and the patient was carefully transferred off of the [place] table. Following removal of the boots the leg lengths felt acceptable. The patient was then taken to recovery room having tolerated the procedure well. Lopez Valenzuela PA-C was required as a skilled human resources assistant manager due to the complexity of surgery for patient positioning, draping, exposure, retraction, closure of wound and application of dressing. PLAN: The patient can weight-bear as tolerated on his right hip. Leave incisional wound VAC in place. 2 doses postoperative antibiotics. Will plan for DVT prophylaxis with aspirin 81 mg twice a day, but will defer to internal medicine on choice of anticoagulant given the patient's preoperative anemia and history of recurrent GI bleeds.
--- NOTE | 2024-10-09 13:41 | XR ---
Right hip Limited. HISTORY: Right hip prosthesis placement. COMPARISON: None. TECHNIQUE: 32.5 seconds of fluoroscopy and 7 spot films were obtained in the operating room. FINDINGS: Fluoroscopic spot images obtained in the OR demonstrate placement of a total right hip prosthesis. IMPRESSION: Successful total right hip prosthesis placement. There appears to be near anatomic alignment. There i s no acute fracture or dislocation. [facility], Workstation: TELLY 10/09/2024 1:39 PM
--- NOTE | 2024-10-09 13:42 | FL ---
Fluoroscopic guidance operating room. HISTORY: Intraoperative placement of a right hip prosthesis. COMPARISON: None. Technique and impression: 32.5 seconds of fluoroscopy was utilized for placement of a right hip prosthesis in the operating christi mMelisa [facility], Workstation: TELLY 10/09/2024 1:40 PM
[2024-10-09] MEDS: SODIUM CHLORIDE 0.9% 1,000 ML IV ONE (15:19)
[2024-10-09] MEDS: HYDROcodone/APAP 5-325MG 1 EACH TAB PO PRN (16:15)
[2024-10-09 19:00] LABS: Basophils # (A) 0.01 10*3/uL (0.00-0.10); Basophils % (A) 0.1 %; Eosinophils # (A) 0.00 10*3/uL (0.04-0.35); Eosinophils % (A) 0.0 %; HCT 30.4 % (39.6-50.0); HGB 9.5 g/dL (13.0-17.0); Lymphocytes # (A) 0.52 10*3/uL (0.90-5.00); Lymphocytes % (A) 5.3 %; MCH 27.5 pg (27.0-32.0); MCHC 31.3 g/dL (32.0-37.0); MCV 88.1 fL (80.0-97.0); Monocytes # (A) 0.61 10*3/uL (0.20-1.00); Monocytes % (A) 6.2 %; Neutrophils # (A) 8.59 10*3/uL (1.80-7.70); Neutrophils % (A) 88.0 %; Platelet Count 156 10*3/uL (140-440); RBC 3.45 10*6/uL (4.40-5.60); RDW 21.8 % (11.5-14.5); WBC 9.77 10*3/uL (4.50-10.00)
[2024-10-09] MEDS: SENNOSIDES-DOCUSATE SODIUM 1 EACH TAB PO SCH (21:50)
[2024-10-09] MEDS: TEMAZEPAM 15 MG CAP PO PRN (22:35)
[2024-10-10] MEDS: hydrOXYzine HCL 25 MG TAB PO PRN (06:58)
--- NOTE | 2024-10-10 07:49 | P.PN ---
Subjective Progress Note Date: 10/10/24 No acute events overnight. Patient is doing well this morning. The pain in their hip is mild. They deny chest pain or shortness of breath. Objective - Vital Signs Vital signs: Vital Signs Temp 97.9 F 10/10/24 00:55 Pulse 78 10/10/24 02:13 Resp 17 10/10/24 00:55 BP 111/65 10/10/24 02:13 Pulse Ox 96 10/10/24 00:55 FiO2 Intake & Output 10/09/24 10/10/24 10/10/24 18:59 06:59 18:59 Intake Total 1600 0 Output Total 450 500 Balance 1150 -500 Intake: IV 1600 Oral 0 Output: Urine 250 500 Estimated Blood Loss 200 Other: Voiding Method Indwelling Catheter Indwelling Catheter - Exam Patient was examined at bedside. Patient is resting comfortably in bed. No apparent distress. They are awake, alert and able to answer questions. Inspection: The surgical wound VAC dressing is intact, there is no drainage or strikethrough. The skin surrounding the dressing is free of erythema. There is mild swelling in the operative thigh. Palpation: The operative right calf is soft to compression. No calf tenderness. Neurovascular: Operative right femoral nerve function is intact. The patient is able to actively plantarflex and dorsiflex their operative ankle and toes. Operative extremity sensation is intact to light touch throughout. Their operative foot appears well perfused, palpable dorsalis pedis pulse, and capillary refill under 2 seconds. - Labs CBC & Chem 7: 10/09/24 18:37 10/08/24 20:50 Labs: Abnormal Lab Results - Last 24 Hours (Table) 10/09/24 Range/Units 18:37 RBC 3.45 L (4.40-5.60) 10*6/uL Hgb 9.5 L (13.0-17.0) g/dL Hct 30.4 L (39.6-50.0) % MCHC 31.3 L (32.0-37.0) g/dL RDW 21.8 H (11.5-14.5) % Neutrophils # 8.59 H (1.80-7.70) 10*3/uL Lymphocytes # 0.52 L (0.90-5.00) 10*3/uL Eosinophils # 0.00 L (0.04-0.35) 10*3/uL Assessment and Plan Assessment: Postop day #1 10/09/2024 status post Right direct anterior hip hemiarthroplasty and Application of negative pressure incisional wound VAC for Displaced right subcapital femoral neck fracture History of pancreatic cancer status post Whipple procedure Cachexia, BMI 15.1 Preoperative anemia with hemoglobin less than 10 COPD Recurrent gastrointestinal bleeds Fragility fracture with recent kyphoplasty for compression fracture in the spine Plan: Weight-bear as tolerated on the operative extremity. Use a walker to ambulate. Leave surgical dressing in place. Physical therapy for gait training and mobilization. We appreciate internal medicine for perioperative medical management. Disposition: Pending physical therapy recommendations.
[2024-10-10] MEDS ORDERED: TAMSULOSIN 0.4 MG CAP.ER.24H PO SCH (08:30)
[2024-10-10] MEDS: buPROPion XL 150 MG TAB.ER.24H PO SCH (09:04)
[2024-10-10] MEDS: ACETAMINOPHEN TAB 325 MG TAB PO PRN (09:04)
[2024-10-10] MEDS ORDERED: NON FORMULARY DRUG (Albuterol Inhaler 90 MCG Puff) INHALATION PRN (10:24)
[2024-10-10] MEDS: LORazepam 1 MG/0.5 ML VIAL IV STA (10:41)
[2024-10-10] MEDS: VONOPRAZAN FUMARATE 20 MG PO SCH (13:15)
[2024-10-10] MEDS: MULTIVITAMINS, THERA 1 EACH TAB PO SCH (13:15)
[2024-10-10] MEDS: TAMSULOSIN 0.4 MG CAP.ER.24H PO SCH (13:15)
[2024-10-10] MEDS: LIPASE 5,000/PROTEASE 17,000/AMYLASE 24,000 PO SCH (13:15)
--- NOTE | 2024-10-10 14:59 | P.PN ---
Subjective Progress Note Date: 10/10/24 Subjective: Patient seen and examined at bed side, he was sitting up comfortably in bed. Per at bedside, patient was restless and not able to sleep last night. Patient vocalizes no concerns. Physical Exam: Vital signs Reviewed General: nontoxic, no distress, appears at stated age Derm: warm, dry, intact Head: atraumatic, normocephalic, symmetric Eyes: EOMI, anicteric sclera Cardiovascular: S1 S2 reg, no murmur, rubs, or gallops Lungs: CTA bilateral, no rhonchi, no rales, no accessory muscle use, o Abdominal: soft, non-tender to palpation. Extremities: no gross muscle atrophy, no edema, no contractures Neuro: Alert, Oriented, Psych: well appearing, appropriate affect Data Received Today: Pertinent Labs: Hgb stable at 9.5 Assessment and Plan: COPD not in acute exacerbation, requiring 2L home O2 - Continue Symbicort 2 puffs twice daily Anxiety -Continue Valium 2.5mg tid -Lexapro 20mg -Atarax 25mg q4hr PRN -Trazodone 100mg -Temazepam 15mg History of Pancreatic cancer s/p Whipple procedure - resume pancreatic enzymes and voquezna 20 mg dailly s/p Right Hip Hemiatrhroplasty - Pain management and antibiotics per orthopedics - PT recommending sub acute rehab DVT ppx: heparin 5000 SQ q8hr Code status: FULL Patient is medically optimized for discharge. Zachary Camarillo MD PGY-1 FM Dictation was produced using [employer] dictation software. please excuse any grammatical, word or spelling errors. I saw and evaluated the patient during the bateman and critical portions of this encounter, and discussed the case in detail with the resident author of this note, I agree with the Assessment and Plan, and my changes, if any, are highlighted in blue. Objective - Vital Signs Vital signs: Vital Signs Temp 98.6 F 10/10/24 07:20 Pulse 81 10/10/24 09:00 Resp 19 10/10/24 09:00 BP 90/51 10/10/24 07:20 Pulse Ox 94 L 10/10/24 07:20 FiO2 Intake & Output 10/09/24 10/10/24 10/10/24 18:59 06:59 18:59 Intake Total 1600 0 Output Total 450 500 Balance 1150 -500 Intake: IV 1600 Oral 0 Output: Urine 250 500 Estimated Blood Loss 200 Other: Voiding Method Indwelling Catheter Indwelling Catheter Indwelling Catheter - Labs CBC & Chem 7: 10/09/24 18:37 10/08/24 20:50 Labs: Abnormal Lab Results - Last 24 Hours (Table) 10/09/24 Range/Units 18:37 RBC 3.45 L (4.40-5.60) 10*6/uL Hgb 9.5 L (13.0-17.0) g/dL Hct 30.4 L (39.6-50.0) % MCHC 31.3 L (32.0-37.0) g/dL RDW 21.8 H (11.5-14.5) % Neutrophils # 8.59 H (1.80-7.70) 10*3/uL Lymphocytes # 0.52 L (0.90-5.00) 10*3/uL Eosinophils # 0.00 L (0.04-0.35) 10*3/uL
[2024-10-10] MEDS: HEPARIN SODIUM,PORCINE 5,000 UNIT/ML 1 ML VIAL SQ SCH (16:29)
[2024-10-10 16:37] VITALS: BMI 15.0
[2024-10-10] MEDS: diazePAM 5 MG TAB PO PRN (18:35)
[2024-10-10] MEDS: ESCITALOPRAM 20 MG TAB PO SCH (21:17)
[2024-10-10] MEDS: SYMBICORT 160-4.5 MCG INHALER INHALATION SCH (21:40)
[2024-10-11] MEDS: diazePAM 5 MG TAB PO PRN
[2024-10-11 04:12] LABS: Basophils # (A) 0.02 10*3/uL (0.00-0.10); Basophils % (A) 0.4 %; Eosinophils # (A) 0.00 10*3/uL (0.04-0.35); Eosinophils % (A) 0.0 %; HCT 25.9 % (39.6-50.0); HGB 8.4 g/dL (13.0-17.0); Immature Platelet Fraction 3.3 % (1.1-6.1); Lymphocytes # (A) 0.51 10*3/uL (0.90-5.00); Lymphocytes % (A) 9.6 %; MCH 27.8 pg (27.0-32.0); MCHC 32.4 g/dL (32.0-37.0); MCV 85.8 fL (80.0-97.0); Monocytes # (A) 0.51 10*3/uL (0.20-1.00); Monocytes % (A) 9.6 %; Neutrophils # (A) 4.23 10*3/uL (1.80-7.70); Neutrophils % (A) 79.8 %; Platelet Count 119 10*3/uL (140-440); RBC 3.02 10*6/uL (4.40-5.60); RDW 21.4 % (11.5-14.5); WBC 5.30 10*3/uL (4.50-10.00)
[2024-10-11 04:25] LABS: African American GFR (CKD) >90 (>60 ml/min/1.73 sqM); Anion Gap 4 mmol/L; Blood Urea Nitrogen 21 mg/dL (9-20); Calcium 8.2 mg/dL (8.4-10.2); Carbon Dioxide 25 mmol/L (22-30); Chloride 104 mmol/L (98-107); Glucose 81 mg/dL (74-99); Magnesium 1.7 mg/dL (1.6-2.3); Non-African American GFR(CKD) >90 (>60 ml/min/1.73 sqM); Potassium 4.1 mmol/L (3.5-5.1); Sodium 133 mmol/L (137-145)
--- NOTE | 2024-10-11 10:18 | P.PN ---
Subjective Progress Note Date: 10/11/24 No acute events overnight. Patient is doing well this morning. The pain in their hip is mild. They deny chest pain or shortness of breath. Objective - Vital Signs Vital signs: Vital Signs Temp 98.1 F 10/11/24 07:13 Pulse 72 10/11/24 07:13 Resp 16 10/11/24 07:13 BP 130/57 10/11/24 07:13 Pulse Ox 100 10/11/24 09:01 FiO2 Intake & Output 10/10/24 10/11/24 10/11/24 18:59 06:59 18:59 Output Total 1800 Balance -1800 Weight 50.349 kg Output: Urine 1800 Other: Voiding Method Indwelling Catheter Indwelling Catheter # Voids 3 - Exam Patient was examined at bedside. Patient is resting comfortably in bed. No apparent distress. They are awake, alert and able to answer questions. Inspection: The surgical wound VAC dressing is intact, there is no drainage or strikethrough. The skin surrounding the dressing is free of erythema. There is mild swelling in the operative thigh. Palpation: The operative right calf is soft to compression. No calf tenderness. Neurovascular: Operative right femoral nerve function is intact. The patient is able to actively plantarflex and dorsiflex their operative ankle and toes. Operative extremity sensation is intact to light touch throughout. Their operative foot appears well perfused, palpable dorsalis pedis pulse, and capillary refill under 2 seconds. - Labs CBC & Chem 7: 10/11/24 03:29 10/11/24 03:29 Labs: Abnormal Lab Results - Last 24 Hours (Table) 10/11/24 10/11/24 Range/Units 03:29 03:29 RBC 3.02 L (4.40-5.60) 10*6/uL Hgb 8.4 L (13.0-17.0) g/dL Hct 25.9 L (39.6-50.0) % RDW 21.4 H (11.5-14.5) % Plt Count 119 L (140-440) 10*3/uL Lymphocytes # 0.51 L (0.90-5.00) 10*3/uL Eosinophils # 0.00 L (0.04-0.35) 10*3/uL Sodium 133 L (137-145) mmol/L BUN 21 H (9-20) mg/dL Creatinine 0.48 L (0.66-1.25) mg/dL Calcium 8.2 L (8.4-10.2) mg/dL Assessment and Plan Assessment: Postop day #2 10/09/2024 status post Right direct anterior hip hemiarthroplasty and Application of negative pressure incisional wound VAC for Displaced right subcapital femoral neck fracture History of pancreatic cancer status post Whipple procedure Cachexia, BMI 15.1 Preoperative anemia with hemoglobin less than 10 COPD Recurrent gastrointestinal bleeds Fragility fracture with recent kyphoplasty for compression fracture in the spine Plan: Weight-bear as tolerated on the operative extremity. Use a walker to ambulate. Leave surgical dressing in place. We appreciate internal medicine for perioperative medical management. Disposition: Physical therapy recommended this patient be transferred to short acute rehab at time of discharge. The patient is cleared to transfer to rehab f rom orthopedic standpoint when cleared by internal medicine. A paper prescription prescription for [place] and start form was completed and placed in patient's chart 10/11/2024.
--- NOTE | 2024-10-11 14:12 | CDI ---
Documentation Clarification Form Date: 10/11/2024 12:40:00 PM From: Sara Siegel RN, CCDS Phone: [phone] Admit Date: 10/08/2024 10:35:00 PM Patient Name: Bandar Wilkes Visit Number: [id number] Discharge Date: ATTENTION: The Clinical Documentation Specialists (CDI) and [facility] Coding Staff appreciate your assistance in clarifying documentation. Please respond to the clarification below the line at the bottom and electronically sign. The CDI & [facility] Coding staff will review the response and follow-up if needed. Please note: Queries are made part of the Legal Health Record. If you have any questions, please contact the author of this message via ITS. Doctor. Tyrell Walters A fracture is documented in the Orthopedic H/P and subsequent progress notes. Additional clarification regarding the etiology of the fracture is requested. History/Risk Factors: Cachexia, BMI 15.1, pancreatic cancer, Fragility fracture with recent Kyphoplasty for compression fracture in the spine Clinical Indications: 79-year-old male present to ED with ground level fall. He sustained a displaced right subcapital femoral neck fracture. 10/08 Right Hip XR: Acute impacted minimally displaced right proximal femur subcapital fracture. 10/08 Hip/pelvis both hips: Findings: Diffuse bone demineralization. 10/08 HGB 9.7 HCT 30.7 10/09 Procedure: Right direct anterior hip hemiarthroplasty. 2. Application of negative pressure incisional wound VAC, right hip, DME, Procedure note: 'The patient had exceedingly poor bone quality." Treatment: Right direct anterior Hip Hemiarthroplasty. Cefazolin 1,000 MG IVPB Once Physical therapy for gait training and mobilization Weight-bear as tolerated on the operative extremity. Use a walker to ambulate Please further clarify the etiology of the fracture, if known: [ ] Fragility fracture, age related, possible adding to the cause of Right Hip displaced subcapital femoral neck fracture [ ] Other (please specify): [ ] Unable to determine (Template Last Revised: May 2020) MTDD
[2024-10-11 14:31] LABS: Basophils # (A) 0.01 10*3/uL (0.00-0.10); Basophils % (A) 0.2 %; Eosinophils # (A) 0.00 10*3/uL (0.04-0.35); Eosinophils % (A) 0.0 %; HCT 27.5 % (39.6-50.0); HGB 8.8 g/dL (13.0-17.0); Lymphocytes # (A) 0.27 10*3/uL (0.90-5.00); Lymphocytes % (A) 4.8 %; MCH 27.7 pg (27.0-32.0); MCHC 32.0 g/dL (32.0-37.0); MCV 86.5 fL (80.0-97.0); Monocytes # (A) 0.37 10*3/uL (0.20-1.00); Monocytes % (A) 6.5 %; Neutrophils # (A) 4.98 10*3/uL (1.80-7.70); Neutrophils % (A) 88.1 %; Platelet Count 129 10*3/uL (140-440); RBC 3.18 10*6/uL (4.40-5.60); RDW 21.5 % (11.5-14.5); WBC 5.65 10*3/uL (4.50-10.00)
--- NOTE | 2024-10-11 14:59 | P.PN ---
Subjective Progress Note Date: 10/11/24 Subjective: 11/10/2024 Patient seen and examined at bed side, he was sitting up comfortably in bed. Patient stated that he feels calmer today and that he slept good last night. Physical Exam: Vital signs Reviewed General: nontoxic, no distress, appears at stated age Derm: warm, dry, intact Head: atraumatic, normocephalic, symmetric Eyes: EOMI, anicteric sclera Cardiovascular: S1 S2 reg, no murmur, rubs, or gallops Lungs: CTA bilateral, no rhonchi, no rales, no accessory muscle use. Abdominal: soft, non-tender to palpation. Extremities: no gross muscle atrophy, no edema, no contractures Neuro: Alert, Oriented, Psych: well appearing, appropriate affect Data Received Today: Pertinent Labs: Hgb = 8.8 Plt = 129 Na = 133 BUN = 21 Cr = 0.48 Ca = 8.2 Assessment and Plan: COPD not in acute exacerbation, requiring 2L home O2 - Continue Symbicort 2 puffs twice daily Anxiety - Continue Valium 2.5mg tid - Lexapro 20mg PO - Atarax 25mg q4hr PRN - Trazodone 100mg PO - Discontinue Temazepam 15mg History of Pancreatic cancer s/p Whipple procedure - Resume pancreatic enzymes and voquezna 20 mg dailly s/p Right Hip Hemiatrhroplasty - Pain management and antibiotics per orthopedics - PT recommending sub acute rehab DVT ppx: heparin 5000 SQ q8hr Code status: FULL Patient is medically optimized for discharge. Zachary Camarillo MD PGY-1 FM Dictation was produced using [employer] dictation software. please excuse any grammatical, word or spelling errors. I saw and evaluated the patient during the bateman and critical portions of this encounter, and discussed the case in detail with the resident author of this note, I agree with the Assessment and Plan, and my changes, if any, are hi ghlighted in blue. Objective - Vital Signs Vital signs: Vital Signs Temp 98.1 F 10/11/24 07:13 Pulse 72 10/11/24 08:00 Resp 16 10/11/24 08:00 BP 130/57 10/11/24 07:13 Pulse Ox 100 07/15/25 09:01 FiO2 Intake & Output 10/10/24 10/11/24 10/11/24 18:59 06:59 18:59 Output Total 1800 Balance -1800 Weight 50.349 kg Output: Urine 1800 Other: Voiding Method Indwelling Catheter Indwelling Catheter Urinal # Voids 3 - Labs CBC & Chem 7: 10/11/24 14:04 10/11/24 03:29 Labs: Abnormal Lab Results - Last 24 Hours (Table) 10/11/24 10/11/24 10/11/24 Range/Units 03:29 03:29 14:04 RBC 3.02 L 3.18 L (4.40-5.60) 10*6/uL Hgb 8.4 L 8.8 L (13.0-17.0) g/dL Hct 25.9 L 27.5 L (39.6-50.0) % RDW 21.4 H 21.5 H (11.5-14.5) % Plt Count 119 L 129 L (140-440) 10*3/uL Lymphocytes # 0.51 L 0.27 L (0.90-5.00) 10*3/uL Eosinophils # 0.00 L 0.00 L (0.04-0.35) 10*3/uL Sodium 133 L (137-145) mmol/L BUN 21 H (9-20) mg/dL Creatinine 0.48 L (0.66-1.25) mg/dL Calcium 8.2 L (8.4-10.2) mg/dL
[2024-10-12] MEDS ORDERED: VONOPRAZAN FUMARATE 20 MG PO SCH (09:00)
[2024-10-12] MEDS: VONOPRAZAN FUMARATE 20 MG PO SCH (09:08)
--- NOTE | 2024-10-12 10:54 | P.DS ---
Providers Date of admission: 10/08/24 22:35 Attending physician: Tyrell Walters Consults: 10/08/24 22:33 Consult Physician Urgent Consulting Provider: Charline Raines Consult Reason/Comments: medical management Do you want consulting provider notified?: Yes, Notify in am Primary care physician: Physician Nonstaff Hospital Course: H&P 10/09/24 The patient is a very pleasant 79-year-old male multiple medical problems including a history of pancreatic cancer status post Whipple procedure 15 years ago, COPD on home oxygen, recurrent bleeding ulcers in his gastrointestinal tract, and history of vertebral compression fracture requiring kyphoplasty who is presently admitted to me with a right hip fracture. According to the patient and family who is at bedside he was getting up yesterday when he slipped and fell injuring his right hip. The patient states he had immediate pain and was unable to ambulate. He was down for a short amount of time before his family found him. He was brought to the emergency room where x-rays and CT scan showed a displaced subcapital femoral neck fracture. At the time of my evaluation the prior hip pain. According to the son at baseline the patient is not very active and ambulates short distances with assistance and a walker. On 10/09/2024 patient underwent right direct anterior hip hemiarthroplasty and application of negative pressure incisional wound VAC by Dr. Walters. Patient tolerated the procedure well. Patient was transferred to the orthopedic floor. Patient worked with physical therapy and is determined the patient will need transferred to rehab at time of discharge. Patient was examined's morning. Patient was examined at bedside. Patient is resting comfortably in bed. No apparent distress. They are awake, alert and able to answer questions. Inspection: Upon entering the room the patient had removed their incisional wound VAC and the incision was bare. Patient states they do not know how it happened. Incision is intact, there is no erythema, there is no wound dehiscence. Around the incision was prepped and a OpSite surgical dressing was placed. There is mild swelling in the operative thigh. Palpation: The operative calf is soft to compression. No calf tenderness. Neurovascular: Operative femoral nerve function is intact. The patient is able to actively plantarflex and dorsiflex their operative ankle and toes. Operative extremity sensation is intact to light touch throughout. Their operative foot appears well perfused, palpable dorsalis pedis pulse, and capillary refill under 2 seconds. Start form an oral norco pain medication prescription was placed in patient's chart. Defer anticoagulation to internal medicine. We appreciate internal medicine with medical management of this patient. Patient will transfer to rehab today. Assessment: Postop day #3 10/09/2024 status post Right direct anterior hip hemiarthroplasty and Application of negative pressure incisional wound VAC for Displaced right subcapital femoral neck fracture History of pancreatic cancer status post Whipple procedure Cachexia, BMI 15.1 Preoperative anemia with hemoglobin less than 10 COPD Recurrent gastrointestinal bleeds Fragility fracture with recent kyphoplasty for compression fracture in the spine Patient Condition at Discharge: Stable Plan - Discharge Summary New Discharge Prescriptions: New HYDROcodone/APAP 5-325MG [[place] 5] 1 - 2 each PO Q6HR PRN #24 tab PRN Reason: Pain Doxycycline Monohydrate 100 mg PO BID #28 cap Omeprazole 20 mg PO DAILY #30 tab Sennosides-Docusate Sodium [Senokot-S] 1 tab PO BID PRN #60 tablet PRN Reason: Constipation Multivitamins, Thera [Multivitamin (formulary)] 1 each PO DAILY@1200 tab Acetaminophen Tab [Tylenol] 650 mg PO Q6HR PRN tab PRN Reason: Mild Pain Or Fever > 100.5 Continue Escitalopram [Lexapro] 20 mg PO HS Albuterol Inhaler [Ventolin Hfa Inhaler] 2 puff INHALATION RT-QID PRN PRN Reason: Shortness Of Breath Tamsulosin [Flomax] 0.4 mg PO DIRECTED traZODone HCL [Desyrel] 100 mg PO HS Lipase/Protease/Amylase [Patricia Dr 3,000 Unit Capsule] 1 cap PO TID-W/MEALS Fluticasone/Vilanterol [Breo Ellipta 200-25 Mcg Inhaler] 1 puff INHALATION RT-DAILY buPROPion XL [Wellbutrin XL] 150 mg PO DAILY Vonoprazan Fumarate [Voquezna] 20 mg PO DAILY Discharge Medication List Albuterol Inhaler [Ventolin Hfa Inhaler] 2 puff INHALATION RT-QID PRN 07/21/24 [History] Escitalopram [Lexapro] 20 mg PO HS 07/21/24 [History] Fluticasone/Vilanterol [Breo Ellipta 200-25 Mcg Inhaler] 1 puff INHALATION RT- DAILY 07/21/24 [History] Lipase/Protease/Amylase [Patricia Dr 3,000 Unit Capsule] 1 cap PO TID-W/MEALS 07/21/24 [History] Tamsulosin [Flomax] 0.4 mg PO DIRECTED 10/09/24 [History] Vonoprazan Fumarate [Voquezna] 20 mg PO DAILY 10/09/24 [History] buPROPion XL [Wellbutrin XL] 150 mg PO DAILY 10/09/24 [History] traZODone HCL [Desyrel] 100 mg PO HS 10/09/24 [History] Acetaminophen Tab [Tylenol] 650 mg PO Q6HR PRN tab 10/11/24 [Rx] HYDROcodone/APAP 5-325MG [[place] 5] 1 - 2 each PO Q6HR PRN #24 tab 10/11/24 [Rx] Multivitamins, Thera [Multivitamin (formulary)] 1 each PO DAILY@1200 tab 10/11/24 [Rx] Omeprazole 20 mg PO DAILY #30 tab 10/11/24 [Rx] Sennosides-Docusate Sodium [Senokot-S] 1 tab PO BID PRN #60 tablet 10/11/24 [Rx] Doxycycline Monohydrate 100 mg PO BID #28 cap 10/12/24 [Rx] Follow up Appointment(s)/Referral(s): None,Stated [REFERRING] - 1-2 days Tyrell Walters MD [Medical Doctor] - 2 Weeks Activity/Diet/Wound Care/Special Instructions: 1. Weight-bear as tolerated on your operative extremity unless instructed otherwise. Use a walker or other assistive device to ambulate. 2. Leave surgical dressing in place. If your dressing becomes saturated with blood, there is drainage, or the dressing becomes loose please contact the office. 3. It is okay to shower with your surgical dressing, but do not submerge in water (no hot tubs, bath's, swimming etc.) 4. Anticoagulation per internal medicine recommendations. 5. While taking [place] or Percocet for pain take a stool softener (Ex: Colace) and drink lots of water. 6. Keep all follow-up appointments as scheduled. You will usually be seen in 1-2 weeks following surgery. 7. Please contact the office with any questions or concerns [phone] Discharge Disposition: TRANSFER TO SNF/ECF
--- NOTE | 2024-10-12 12:03 | P.PN ---
Subjective Progress Note Date: 10/12/24 Subjective: Patient seen and examined at bed side. No acute events overnight. No acute complaints. Physical Exam: Vital signs Reviewed General: nontoxic, no distress, appears at stated age Derm: warm, dry, intact Head: atraumatic, normocephalic, symmetric Eyes: EOMI, anicteric sclera Cardiovascular: S1 S2 reg, no murmur, rubs, or gallops Lungs: CTA bilateral, no rhonchi, no rales, no accessory muscle use. Abdominal: soft, non-tender to palpation. Extremities: no gross muscle atrophy, no edema, no contractures Neuro: Alert, Oriented, Psych: well appearing, appropriate affect Assessment and Plan: COPD not in acute exacerbation, requiring 2L home O2 - Continue Symbicort 2 puffs twice daily Anxiety - Continue Valium 2.5mg tid - Lexapro 20mg PO - Atarax 25mg q4hr PRN - Trazodone 100mg PO History of Pancreatic cancer s/p Whipple procedure - Resume pancreatic enzymes and voquezna 20 mg dailly s/p Right Hip Hemiatrhroplasty Thrombocytopenia, anticipated outcome of surgery - Pain management and antibiotics per orthopedics - PT recommending sub acute rehab Normocytic anemia - Stable DVT ppx: heparin 5000 SQ q8hr Code status: FULL Patient is medically optimized for discharge. Racquel Solorio MD PGY-2 IM Dictation was produced using [employer] dictation software. please excuse any grammatical, word or spelling errors. I have seen and evaluated the patient today. Discussed with the resident and agree with the residents finding and plan as documented in the resident's note. Changes highlighted in blue font. Objective - Vital Signs Vital signs: Vital Signs Temp 98.0 F 10/12/24 07:40 Pulse 65 10/12/24 07:40 Resp 15 10/12/24 07:40 BP 139/68 10/12/24 07:40 Pulse Ox 98 10/12/24 09:23 FiO2 Intake & Output 10/11/24 10/12/24 10/12/24 18:59 06:59 18:59 Other: Voiding Method Urinal Urinal Diaper # Voids 6 4 - Labs CBC & Chem 7: 10/11/24 14:04 10/11/24 03:29 Labs: Abnormal Lab Results - Last 24 Hours (Table) 10/11/24 Range/Units 14:04 RBC 3.18 L (4.40-5.60) 10*6/uL Hgb 8.8 L (13.0-17.0) g/dL Hct 27.5 L (39.6-50.0) % RDW 21.5 H (11.5-14.5) % Plt Count 129 L (140-440) 10*3/uL Lymphocytes # 0.27 L (0.90-5.00) 10*3/uL Eosinophils # 0.00 L (0.04-0.35) 10*3/uL
[2024-10-13 02:28] VITALS: RESP 16
[2024-10-13 08:02] VITALS: BP 139/76; PULSE 64; TEMP 99
--- NOTE | 2024-10-13 08:18 | P.PN ---
Progress Note - Text Progress Note Date: 10/13/24 Subjective: Patient was not able to transfer to rehab on 10/12/2024 as he was awaiting placement. Objective: Patient was examined at bedside this morning. Patient is resting comfortably in bed. No apparent distress. They are awake, alert and able to answer questions. Inspection: The surgical dressing is intact, there is no drainage or strikethrough. The skin surrounding the dressing is free of erythema. There is mild swelling in the operative thigh. Palpation: The operative calf is soft to compression. No calf tenderness. Neurovascular: Operative femoral nerve function is intact. The patient is able to actively plantarflex and dorsiflex their operative ankle and toes. Operative extremity sensation is intact to light touch throughout. Their operative foot appears well perfused, palpable dorsalis pedis pulse, and capillary refill under 2 seconds. Assessment: Postop day #4 10/09/2024 status post right hip hemiarthroplasty for right femoral neck fracture. Plan: Patient is cleared to discharge from an orthopedic standpoint today when cleared by internal medicine and has bed placement.
--- NOTE | 2024-10-13 12:48 | P.PN ---
Subjective Progress Note Date: 10/13/24 Subjective: 10/13/2024 Patient seen and examined at bed side, he was sitting on a chair. No acute events overnight. No new complaints. Physical Exam: Vital signs Reviewed General: nontoxic, no distress, appears at stated age Derm: warm, dry, intact Head: atraumatic, normocephalic, symmetric Eyes: EOMI, anicteric sclera Cardiovascular: S1 S2 reg, no murmur, rubs, or gallops Lungs: CTA bilateral, no rhonchi, no rales, no accessory muscle use. Abdominal: soft, non-tender to palpation. Extremities: no gross muscle atrophy, no edema, no contractures Neuro: Alert, Oriented, Psych: well appearing, appropriate affect Assessment and Plan: COPD not in acute exacerbation, requiring 2L home O2 - Continue Symbicort 2 puffs twice daily Anxiety - Continue Valium 2.5mg tid - Lexapro 20mg PO - Atarax 25mg q4hr PRN - Trazodone 100mg PO History of Pancreatic cancer s/p Whipple procedure - Resume pancreatic enzymes and voquezna 20 mg dailly s/p Right Hip Hemiatrhroplasty Thrombocytopenia, anticipated outcome of surgery - Pain management and antibiotics per orthopedics - PT recommending sub acute rehab Normocytic anemia, stable DVT ppx: heparin 5000 SQ q8hr Code status: FULL Patient is medically optimized for discharge. Zachary Camarillo MD PGY-1 FM Dictation was produced using maufait dictation software. please excuse any grammatical, word or spelling errors. I have seen and evaluated the patient today. Discussed with the resident and agree with the residents finding and plan as documented in the resident's note. Changes highlighted in blue font. Objective - Vital Signs Vital signs: Vital Signs Temp 99.0 F 10/13/24 07:25 Pulse 64 10/13/24 07:25 Resp 16 10/13/24 07:25 BP 139/76 10/13/24 07:25 Pulse Ox 95 10/13/24 07:25 FiO2 Intake & Output 10/12/24 10/13/24 10/13/24 18:59 06:59 18:59 Output Total 200 Balance -200 Output: Urine 200 Other: Voiding Method Diaper Bedside Commode Bedside Commode Urinal Urinal Diaper Diaper # Voids 4 1 - Labs CBC & Chem 7: 10/11/24 14:04 10/11/24 03:29
--- NOTE | 2024-10-14 17:27 | CDI ---
Documentation Clarification Form Date: 10/14/2024 05:12:20 PM From: Rosita Chun Admit Date: 10/08/2024 10:35:00 PM Patient Name: Bandar Wilkes Visit Number: [id number] Discharge Date: 10/13/2024 03:13:00 PM ATTENTION: The Clinical Documentation Specialists (CDI) and [facility] Coding Staff appreciate your assistance in clarifying documentation. Please respond to the clarification below the line at the bottom and electronically sign. The CDI & [facility] Coding staff will review the response and follow-up if needed. Please note: Queries are made part of the Legal Health Record. If you have any questions, please contact the author of this message via ITS. Doctor/Provider: Tyrell Walters Malnutrition is documented in the H&P 10/09/24. Additional clarification regarding the severity of malnutrition is requested. History/Risk Factors: patient is a 79 year old male with medical problems including history of pancreatic cancer status post whipple procedure, COPD on home oxygen, recurrent bleeding ulcers, vertebral compression fracture requiring kyphoplasty, and GERD Clinical Indicators: documentation indicates cachexia with a BMI of 15, appearance the patient is very thin and frail. He fell in his home and was found to have a subcapital femoral neck fracture of the right hip and underwent a right hemiarthroplasty. Patient is not very active and ambulates short distances with assistance and a walker. Current BMI: 15.1 RD Consult Assessment: indicates malnutrition, nutritional intake is fair and consumes 25-50% of meals, takes a multivitamin, is underweight, has inadequate energy intake, and diminished appetite Supplements: ensure and HP BID Please clarify the severity of malnutrition, if known: [ ] Mild Protein-Calorie Malnutrition [ ] Moderate Protein-Calorie Malnutrition [ ] Severe Protein-Calorie Malnutrition [ ] Malnutrition, unknown severity [ ] Other condition, please specify [ ] Unable to Determine MTDD
--- NOTE | 2024-10-19 08:57 | CDI ---
Documentation Clarification Form Date: 10/19/2024 12:40:00 PM From: Sara Siegel RN, CCDS Phone: [phone] Admit Date: 10/08/2024 10:35:00 PM Patient Name: Bandar Wilkes Visit Number: [id number] Discharge Date: 10/13/2024 03:13:00 PM ATTENTION: The Clinical Documentation Specialists (CDI) and [facility] Coding Staff appreciate your assistance in clarifying documentation. Please respond to the clarification below the line at the bottom and electronically sign. The CDI & [facility] Coding staff will review the response and follow-up if needed. Please note: Queries are made part of the Legal Health Record. If you have any questions, please contact the author of this message via ITS. Doctor. Tyrell Walters A fracture is documented in the Orthopedic H/P and subsequent progress notes. Additional clarification regarding the etiology of the fracture is requested. History/Risk Factors: Cachexia, BMI 15.1, pancreatic cancer, Fragility fracture with recent Kyphoplasty for compression fracture in the spine Clinical Indications: 79-year-old male present to ED with ground level fall. He sustained a displaced right subcapital femoral neck fracture. 10/08 Right Hip XR: Acute impacted minimally displaced right proximal femur subcapital fracture. 10/08 Hip/pelvis both hips: Findings: Diffuse bone demineralization. 10/08 HGB 9.7 HCT 30.7 10/09 Procedure: Right direct anterior hip hemiarthroplasty. 2. Application of negative pressure incisional wound VAC, right hip, DME, Procedure note: 'The patient had exceedingly poor bone quality." Treatment: Right direct anterior Hip Hemiarthroplasty. Cefazolin 1,000 MG IVPB Once Physical therapy for gait training and mobilization Weight-bear as tolerated on the operative extremity. Use a walker to ambulate Please further clarify the etiology of the fracture, if known: [ ] Poor bone quality, Fragility, age related, possible adding to the cause of Right Hip displaced subcapital femoral neck fracture [ ] Other (please specify): [ ] Unable to determine (Template Last Revised: May 2020) MTDD
--- NOTE | 2024-10-19 11:45 | CDI ---
Documentation Clarification Form Date: 10/19/2024 11:35:08 AM From: Rosita Chun Admit Date: 10/08/2024 10:35:00 PM Patient Name: Bandar Wilkes Visit Number: [id number] Discharge Date: 10/13/2024 03:13:00 PM ATTENTION: The Clinical Documentation Specialists (CDI) and [facility] Coding Staff appreciate your assistance in clarifying documentation. Please respond to the clarification below the line at the bottom and electronically sign. The CDI & [facility] Coding staff will review the response and follow-up if needed. Please note: Queries are made part of the Legal Health Record. If you have any questions, please contact the author of this message via ITS. Doctor/Provider: Tyrell Walters Malnutrition is documented in the H&P 10/09/24. Additional clarification regarding the severity of malnutrition is requested. History/Risk Factors: Patient is a 79 year old male with medical problems including history of pancreatic cancer status post whipple procedure, COPD on home oxygen, recurrent bleeding ulcers, vertebral compression fracture requiring kyphoplasty, and GERD Clinical Indicators: cachexia with a BMI of 15, appearance: the patient is very thin and frail. He fell in his home and was found to have a subcapital femoral neck fracture of the right hip and underwent a right hemiarthroplasty. Patient is not very active and ambulates short distances with assistance and a walker per the son. Current BMI: 15.1 RD Consult Assessment: indicated malnutrition, nutritional intake is fair and consumes 25-50% of meals, takes a multivitamin, is underweight, has inadequate energy intake, and diminished appetite. Supplements: ensure and HP BID Please clarify the severity of malnutrition, if known: [ ] Mild Protein-Calorie Malnutrition [ ] Moderate Protein-Calorie Malnutrition [ ] Severe Protein-Calorie Malnutrition [ ] Malnutrition, unknown severity [ ] Other condition, please specify [ ] Unable to Determine not managed by me. send to internal medicine MTDD
--- NOTE | 2024-10-24 08:50 | P.PN ---
Progress Note - Text Cause of patient's fracture is poor bone quality, fragility fracture and trauma/fall.
--- NOTE | 2024-10-26 15:25 | CDI ---
Documentation Clarification Form Date: 10/26/2024 03:15:22 PM From: Rosita Chun Admit Date: 10/08/2024 10:35:00 PM Patient Name: Bandar Wilkes Visit Number: [id number] Discharge Date: 10/13/2024 03:13:00 PM ATTENTION: The Clinical Documentation Specialists (CDI) and [facility] Coding Staff appreciate your assistance in clarifying documentation. Please respond to the clarification below the line at the bottom and electronically sign. The CDI & [facility] Coding staff will review the response and follow-up if needed. Please note: Queries are made part of the Legal Health Record. If you have any questions, please contact the author of this message via ITS. Doctor/Provider: Naseem Thomas Malnutrition is documented in the H&P 10/09/24. Additional clarification regarding the severity of malnutrition is requested. History/Risk Factors: patient is a 79 year old male with medical problems including history of pancreatic cancer status post whipple px. COPD on home oxygen, recurrent bleeding ulcers, vertebral compression fracture requiring kyphoplasty, and GERD. Clinical Indicators: documentation indicates cachexia with BMI of 15, appearance for the patient is very thin and frail. He fell in his home and was found to have a subcapital femoral neck fracture of the right hip and underwent a right hemiarthroplasty. Patient is not very active and ambulates short distances with assistance and a walker. Current BMI: 15.1 RD Consult Assessment: indicates malnutrition, nutritional intake is fair and consumes 25-50% of meals, takes a multivitamin, is underweight, has inadequate energy intake, and diminished appetite. Supplements: ensure and HP BID Please clarify the severity of malnutrition, if known: [ ] Mild Protein-Calorie Malnutrition [ ] Moderate Protein-Calorie Malnutrition [ x ] Severe Protein-Calorie Malnutrition [ ] Malnutrition, unknown severity [ ] Other condition, please specify [ ] Unable to Determine MTDD
== END 2024-10-13 15:13 | DRG 521 ==
LOC: EC 20:08 → 4SSUR 22:35
PROVIDERS: ADMIT Orthopaedic Surgery; ATTEND Orthopaedic Surgery
PROC: 0SRR0J9 Replacement of Right Hip Joint, Femoral Surface with Synthetic Substitute, Cemented, Open Approach (ICD-10-PCS; principal; 2024-10-09 12:00)
DX: M80.051A Age-related osteoporosis with current pathological fracture, right femur, initial encounter for fracture (principal); E43 Unspecified severe protein-calorie malnutrition; R64 Cachexia; D69.6 Thrombocytopenia, unspecified; Z99.81 Dependence on supplemental oxygen; S72.011A Unspecified intracapsular fracture of right femur, initial encounter for closed fracture; F03.94 Unspecified dementia, unspecified severity, with anxiety; J44.9 Chronic obstructive pulmonary disease, unspecified; D64.9 Anemia, unspecified; Z68.1 Body mass index [BMI] 19.9 or less, adult; K86.81 Exocrine pancreatic insufficiency; R00.1 Bradycardia, unspecified; K21.9 Gastro-esophageal reflux disease without esophagitis; W18.30XA Fall on same level, unspecified, initial encounter; Z87.310 Personal history of (healed) osteoporosis fracture; Y92.010 Kitchen of single-family (private) house as the place of occurrence of the external cause; Z79.51 Long term (current) use of inhaled steroids; Z79.899 Other long term (current) drug therapy; Z85.07 Personal history of malignant neoplasm of pancreas; Z87.440 Personal history of urinary (tract) infections; Z87.891 Personal history of nicotine dependence; Z90.411 Acquired partial absence of pancreas; Z86.718 Personal history of other venous thrombosis and embolism
CPT/HCPCS: 36415; 70450; 71045; 72125; 73501; 73521; 80048; 80053; 81001; 83735; 83880; 84484; 85025; 85610; 85730; 93005; 94760; 96361; 96374; 96375; 96376; 99285